=== PATIENT | female | born 1955 | race Caucasian/White ===

== ENCOUNTER 2017-01-01 06:54 | Outpatient (CLI) | payer BC ==
[2017-01-01] MEDS ORDERED: NACL ONE (09:44)
--- NOTE | 2017-01-01 13:06 | Cat Scan Report ---
CT ABDOMEN AND PELVIS WITH CONTRAST INDICATION: Diverticulitis. COMPARISON: 12/07/2016. FINDINGS: Abdomen and pelvis CT performed following oral contrast and intravenous administration of 100 cc of Omnipaque 300. LUNG BASES: Stable heart size. No effusions. Right hemidiaphragm mildly elevated. Air filled distal esophageal prominence/thickening, not excluded for gastroesophageal reflux and/or hiatal hernia, amongst others. ABDOMEN: Stable cholecystectomy clips. Liver, spleen, pancreas, adrenals, nonaneurysmal abdominal aorta, IVC and kidneys appear within normal limits bilaterally without hydronephrosis, ascites or size significant adenopathy. Opacified small bowel unremarkable. Mild to moderate colonic stool/possible constipation. Multiple descending colon and few proximal sigmoid diverticuli also again seen with interval resolution of inflammatory changes. Small fat containing umbilical hernia with a transverse neck of 1 cm. PELVIS: Uterus again surgically absent with few small pelvic phleboliths. Interval resolution of small pelvic free fluid. Urinary bladder and the rectosigmoid within normal limits. No size significant adenopathy. Few bony degenerative changes, including multilevel lower thoracic right-sided osteophytes. CONCLUSION: 1. Interval resolution of left lower quadrant acute diverticulitis and small pelvic free fluid, as described. 2. Various other incidental findings, including distal esophageal prominence, cholecystectomy, diverticulosis and hysterectomy, amongst others, as above. Thank you for the opportunity to participate in this patient's care.
== END 2017-01-01 06:55 | disposition home or self-care (01) ==
LOC: CT 06:54
PROVIDERS: ATTEND Internal Medicine Gastroenterology
DX: K57.32 Diverticulitis of large intestine without perforation or abscess without bleeding (principal); J98.6 Disorders of diaphragm; K42.9 Umbilical hernia without obstruction or gangrene; I87.8 Other specified disorders of veins; M25.78 Osteophyte, vertebrae; M47.814 Spondylosis without myelopathy or radiculopathy, thoracic region; Z90.710 Acquired absence of both cervix and uterus; Z90.49 Acquired absence of other specified parts of digestive tract
CPT/HCPCS: 74177; Q9967

== ENCOUNTER 2017-01-21 07:08 | Outpatient (CLI) | payer BC ==
[2017-01-21 08:02] LABS: Basophils % (Auto) 0.5 % (0.0-1.8); Eosinophils % (Auto) 1.9 % (0.0-4.3); Hemoglobin 13.8 gm/dl (10.1-14.3); Mean Corpuscular HGB Conc 33 % (30-34); Mean Corpuscular Hemoglobin 29 pg (28-32); Mean Corpuscular Volume 88 fl (79-97); Platelet Count 189 K/mm3 (140-440); Red Blood Count 4.77 M/mm3 (3.65-5.03); Red Cell Distribution Width 13.9 % (13.2-15.2); White Blood Count 8.7 K/mm3 (4.5-11.0)
[2017-01-21 08:26] LABS: Alanine Aminotransferase 28 units/L (7-56); Albumin 3.8 g/dL (3.9-5); Albumin/Globulin Ratio 1.2 %; Alkaline Phosphatase 90 units/L (35-129); Anion Gap 19 mmol/L; BUN/Creatinine Ratio 25.55; Blood Urea Nitrogen 23 mg/dL (7-17); Calcium 9.4 mg/dL (8.4-10.2); Carbon Dioxide 25 mmol/L (22-30); Chloride 97.4 mmol/L (98-107); Cholesterol 243 mg/dL (50-199); Glucose 102 mg/dL (65-100); HDL Cholesterol 67 mg/dL (40-59); LDL Cholesterol,Direct 149 mg/dL (50-130); Potassium 4.1 mmol/L (3.6-5.0); Sodium 137 mmol/L (137-145); Total Protein 7.1 g/dL (6.3-8.2); Triglycerides 136 mg/dL (2-149); Uric Acid 7.1 mg/dL (3.5-7.6)
[2017-01-22 16:22] LABS: Vitamin D, 25-OH, Total 34 ng/mL (30-100)
== END 2017-01-21 07:09 | disposition home or self-care (01) ==
LOC: LAB 07:08
PROVIDERS: ATTEND Internal Medicine
DX: I10 Essential (primary) hypertension (principal); E78.2 Mixed hyperlipidemia; R73.09 Other abnormal glucose; D51.0 Vitamin B12 deficiency anemia due to intrinsic factor deficiency; E55.9 Vitamin D deficiency, unspecified; Z79.899 Other long term (current) drug therapy
CPT/HCPCS: 36415; 80053; 80061; 82306; 82607; 83036; 84443; 84550; 85025

== ENCOUNTER 2017-02-04 06:45 | Day surgery (SDC) | payer BC ==
[2017-02-04] MEDS ORDERED: WATER FOR IRRIG STERILE IR ONE (07:30)
[2017-02-04] MEDS ORDERED: WATER FOR IRRIG STERILE ONE (07:30)
--- NOTE | 2017-02-04 07:33 | Anesthesia Day of Surgery ---
Anesthesia Day of Surgery - Day of Surgery Patient Examined: Yes Patient H&P Reviewed: Yes Patient is NPO: Yes
--- NOTE | 2017-02-04 07:35 | Anesthesia Consultation ---
Anesthesia Consult and Med Hx Date of service: 02/04/17 - Airway Anesthetic Teeth Evaluation: Good ROM Head & Neck: Adequate Mental/Hyoid Distance: Adequate Mallampati Class: Class II Intubation Access Assessment: Probably Good - Pulmonary Exam CTA: Yes - Cardiac Exam Cardiac Exam: RRR - Pre-Operative Health Status ASA Pre-Surgery Classification: ASA2 Proposed Anesthetic Plan: MAC - Pulmonary Hx Asthma: No COPD: No Hx Pneumonia: No - Cardiovascular System Hx Hypertension: Yes - Gastrointestinal Hx Gastroesophageal Reflux Disease: Yes - Endocrine Hx End Stage Renal Disease: No Hx Hypothyroidism: Yes
[2017-02-04] MEDS ORDERED: DIPRIVAN 10 MG/ML IV ONE ×2 (07:44→07:45)
[2017-02-04] MEDS ORDERED: NACL 0.9% 1000 ML 1,000 ML IV SCH (08:00)
--- NOTE | 2017-02-04 08:27 | Post Anesthesia Evaluation ---
- Post Anesthesia Evaluation Patient Participated: Yes Airway Patent: Yes Stable Respiratory Function: Yes Nausea/Vomiting: No Temp > 96.8F: Yes Pain Manageable: Yes Adequeate Hydration: Yes Anesthesia Complications: No Block Receding Appropriately: Not Applicable Patient on Ventilator: No
--- NOTE | 2017-02-04 08:51 | Post Operative Note ---
Pre-op diagnosis: h/o diverticulitis, screening colonoscopy Post-op diagnosis: same (diffuse diverticulosis, sigmoid polyp) Findings: diffuse diverticulosis, sigmoid polyp Procedure: colonoscopy with polypectomy (cold forcep biopsy) Anesthesia: MAC Surgeon: GRECIA COMER Estimated blood loss: minimal Pathology: list (Jar A - sigmoid polyp) Specimen disposition: to lab Condition: stable Disposition: same day
--- NOTE | 2017-02-04 08:57 | Short Stay Summary ---
Short Stay Documentation Date of service: 02/04/17 Narrative H&P: Ms Zaman is a 61 yo female who presents for screening colonoscopy. She has a h/ o acute diverticulitis several months ago which resolved. Last colonoscopy was ~8 years ago and reportedly unremarkable. Pt denies abd pain or new Gi complaints today. - History Past Medical History: hypothyroidism, other (diverticulitis) Past Surgical History: , hysterectomy Social history: no significant social history - Allergies and Medications Current Medications: Allergies No Known Allergies Allergy (Unverified 01/05/14 13:19) Home Medications Medication Instructions Recorded Confirmed Last Taken Type Omeprazole [PriLOSEC] 20 mg PO QDAY #30 capsule. 01/05/16 12/07/16 1 Day Ago Rx Promethazine [Phenergan TAB] 25 mg PO Q6HR PRN #20 tab 01/05/16 12/07/16 Unknown Rx traMADol [Ultram 50 MG tab] 50 mg PO Q6HR PRN #30 tablet 01/05/16 12/07/16 Unknown Rx Ciprofloxacin [Ciprofloxacin ORAL 500 mg PO Q12H #20 ml 12/10/16 Unknown Rx LIQ] Cyclobenzaprine [Flexeril 10 MG 10 mg PO TID PRN #21 tablet 12/10/16 Unknown Rx TAB] HYDROcodone/APAP 5-325 [[place] 1 each PO Q4H PRN #15 tablet 12/10/16 Unknown Rx 5-325 mg TAB] Levothyroxine [Synthroid] 25 mcg PO QAM #30 tablet 12/10/16 Unknown Rx Lisinopril [Zestril TAB] 10 mg PO QDAY #30 tablet 12/10/16 02/04/17 06:00 Rx Mag Hydrox/Al Hydrox/Simeth 20 ml PO QID PRN #1 bottle 12/10/16 Unknown Rx [Maalox Advanced Suspension] metroNIDAZOLE [Flagyl CAP] 500 mg PO Q8H #30 capsule 12/10/16 Unknown Rx Active Medications Sodium Chloride (Nacl 0.9% 1000 Ml) 1,000 mls @ 50 mls/hr IV DIRECT SACHA Last Admin: 02/04/17 08:01 Dose: 50 mls/hr - Physical exam General appearance: no acute distress Lungs: Clear to auscultation Heart: Regular rate, Normal S1, Normal S2 Gastrointestinal: normal Extremities: No edema Short Stay Discharge Plan Follow up with: JARRED HERNANDEZ MD [Primary Care Provider] - 7 Days
[2017-02-04 09:15] VITALS: BP 107/54
--- NOTE | 2017-02-04 09:54 | Operative Report ---
PROCEDURE: Colonoscopy. PREOPERATIVE DIAGNOSES: Screening colonoscopy, history of diverticulitis. POSTOPERATIVE DIAGNOSES: Diffuse diverticulosis, small sigmoid polyp. ANESTHESIA: Monitored anesthesia care. COMPLICATIONS: No immediate complications. ESTIMATED BLOOD LOSS: Minimal. DESCRIPTION OF PROCEDURE: After consent was obtained, the patient was placed in left lateral decubitus position. The Fujinon colonoscope was advanced with direct vision through the anus and advanced to the cecum without difficulty. The patient tolerated the procedure well. The views of the mucosa were good. The quality of prep was good. FINDINGS: There was diverticulosis throughout the colon. There was a less than 5 mm polyp in the sigmoid colon, removed and retrieved with cold biopsy forceps. IMPRESSION: 1. Moderate to severe diverticulosis throughout the colon. 2. Small sigmoid polyp. RECOMMENDATIONS: 1. Followup pathology. 2. High fiber diet daily. 3. Repeat colonoscopy for surveillance purposes in 5 years. 4. Return to GI Clinic as previously scheduled. JOB# [id number] LAM/MACK BONILLA
== END 2017-02-04 06:46 | disposition home or self-care (01) ==
LOC: GIO 06:45
PROVIDERS: ATTEND Internal Medicine Gastroenterology
DX: Z12.11 Encounter for screening for malignant neoplasm of colon (principal); K63.5 Polyp of colon; K57.30 Diverticulosis of large intestine without perforation or abscess without bleeding; I10 Essential (primary) hypertension; K21.9 Gastro-esophageal reflux disease without esophagitis; E03.9 Hypothyroidism, unspecified; E78.5 Hyperlipidemia, unspecified; E66.9 Obesity, unspecified; Z68.30 Body mass index [BMI] 30.0-30.9, adult; Z90.710 Acquired absence of both cervix and uterus; Z98.890 Other specified postprocedural states; Z79.82 Long term (current) use of aspirin; Z79.899 Other long term (current) drug therapy; Z83.79 Family history of other diseases of the digestive system; Z83.3 Family history of diabetes mellitus; Z83.49 Family history of other endocrine, nutritional and metabolic diseases; Z80.42 Family history of malignant neoplasm of prostate
CPT/HCPCS: 45380; 88305; J2704; J7030

== ENCOUNTER 2017-03-27 13:59 | Outpatient (CLI) | payer BC ==
--- NOTE | 2017-03-27 15:15 | Mammography Report ---
BILATERAL DIGITAL SCREENING MAMMOGRAM with CAD: 03/27/17 13:59:00 CLINICAL: Routine screening. COMPARISON:04/03/16 FINDINGS: The breasts are almost entirely fatty. No mass, architectural distortion or suspicious calcifications. IMPRESSION: No mammographic evidence of malignancy. BI-RADS CATEGORY: 1 - - Negative RECOMMENDATION: Routine mammographic screening in one year. COMMENT: Patient follow-up letters are generated by our [employer] application.
== END 2017-03-27 14:00 | disposition home or self-care (01) ==
LOC: MAMMO 13:59
DX: Z12.31 Encounter for screening mammogram for malignant neoplasm of breast (principal); I10 Essential (primary) hypertension; E03.9 Hypothyroidism, unspecified
CPT/HCPCS: 77067; G0202

== ENCOUNTER 2017-04-27 21:06 | Emergency (ER) | payer BC ==
--- NOTE | 2017-04-27 21:33 | Emergency Department Report ---
ED Abdominal Pain HPI - General Chief Complaint: Abdominal Pain Stated Complaint: ABD PAIN Time Seen by Provider: 04/27/17 21:21 Source: patient Mode of arrival: Ambulatory Limitations: No Limitations - History of Present Illness Initial Comments: 61-year-old lady coming in is left lower quadrant and left lower quadrant pain starting on this morning patient had a history of diverticulitis in November low- grade temperature denied any nausea or vomiting no diarrhea denied any urinary symptoms MD Complaint: abdominal pain -: Gradual Location: LUQ, LLQ Radiation: none Migration to: no migration Severity scale (0 -10): 6 Quality: sharp Improves With: nothing Associated Symptoms: denies: nausea, vomiting, chills - Related Data Previous Rx's Medication Instructions Recorded Last Taken Type Omeprazole [PriLOSEC] 20 mg PO QDAY #30 capsule. 01/05/16 1 Day Ago Rx Promethazine [Phenergan TAB] 25 mg PO Q6HR PRN #20 tab 01/05/16 Unknown Rx traMADol [Ultram 50 MG tab] 50 mg PO Q6HR PRN #30 tablet 01/05/16 Unknown Rx Ciprofloxacin [Ciprofloxacin ORAL 500 mg PO Q12H #20 ml 12/10/16 Unknown Rx LIQ] Cyclobenzaprine [Flexeril 10 MG 10 mg PO TID PRN #21 tablet 12/10/16 Unknown Rx TAB] HYDROcodone/APAP 5-325 [[place] 1 each PO Q4H PRN #15 tablet 12/10/16 Unknown Rx 5-325 mg TAB] Levothyroxine [Synthroid] 25 mcg PO QAM #30 tablet 12/10/16 Unknown Rx Lisinopril [Zestril TAB] 10 mg PO QDAY #30 tablet 12/10/16 02/04/17 06:00 Rx Mag Hydrox/Al Hydrox/Simeth 20 ml PO QID PRN #1 bottle 12/10/16 Unknown Rx [Maalox Advanced Suspension] metroNIDAZOLE [Flagyl CAP] 500 mg PO Q8H #30 capsule 12/10/16 Unknown Rx Levofloxacin [Levaquin TAB] 500 mg PO QDAY #10 tablet 04/28/17 Unknown Rx Ondansetron [Zofran Odt] 4 mg PO Q8HR PRN #14 tab.rapdis 04/28/17 Unknown Rx oxyCODONE /ACETAMINOPHEN [Percocet 1 tab PO Q6HR PRN #14 tablet 04/28/17 Unknown Rx 5/325] Allergies Allergy/AdvReac Type Severity Reaction Status Date / Time No Known Allergies Allergy Verified 04/27/17 21:07 ED Review of Systems ROS: Stated complaint: ABD PAIN Other details as noted in HPI Comment: All other systems reviewed and negative Constitutional: denies: chills, fever ENT: denies: throat pain Respiratory: denies: cough, orthopnea, shortness of breath, SOB with exertion Cardiovascular: denies: chest pain, palpitations Gastrointestinal: abdominal pain. denies: nausea, vomiting, diarrhea, constipation, hematemesis, melena, hematochezia Genitourinary: denies: dysuria Neurological: denies: headache, weakness, numbness ED Past Medical Hx - Past Medical History Previous Medical History?: Yes Hx Hypertension: Yes Hx Congestive Heart Failure: No Hx Diabetes: No Hx Asthma: No Hx COPD: No Additional medical history: hypothyroid, diverticulitis - Surgical History Hx Cholecystectomy: Yes Additional Surgical History: - Social History Smoking Status: Never Smoker Substance Use Type: None - Medications Home Medications: Home Medications Medication Instructions Recorded Confirmed Last Taken Type Omeprazole [PriLOSEC] 20 mg PO QDAY #30 capsule. 01/05/16 12/07/16 1 Day Ago Rx Promethazine [Phenergan TAB] 25 mg PO Q6HR PRN #20 tab 01/05/16 12/07/16 Unknown Rx traMADol [Ultram 50 MG tab] 50 mg PO Q6HR PRN #30 tablet 01/05/16 12/07/16 Unknown Rx Ciprofloxacin [Ciprofloxacin ORAL 500 mg PO Q12H #20 ml 12/10/16 Unknown Rx LIQ] Cyclobenzaprine [Flexeril 10 MG 10 mg PO TID PRN #21 tablet 12/10/16 Unknown Rx TAB] HYDROcodone/APAP 5-325 [[place] 1 each PO Q4H PRN #15 tablet 12/10/16 Unknown Rx 5-325 mg TAB] Levothyroxine [Synthroid] 25 mcg PO QAM #30 tablet 12/10/16 Unknown Rx Lisinopril [Zestril TAB] 10 mg PO QDAY #30 tablet 12/10/16 02/04/17 06:00 Rx Mag Hydrox/Al Hydrox/Simeth 20 ml PO QID PRN #1 bottle 12/10/16 Unknown Rx [Maalox Advanced Suspension] metroNIDAZOLE [Flagyl CAP] 500 mg PO Q8H #30 capsule 12/10/16 Unknown Rx Levofloxacin [Levaquin TAB] 500 mg PO QDAY #10 tablet 04/28/17 Unknown Rx Ondansetron [Zofran Odt] 4 mg PO Q8HR PRN #14 tab.rapdis 04/28/17 Unknown Rx oxyCODONE /ACETAMINOPHEN [Percocet 1 tab PO Q6HR PRN #14 tablet 04/28/17 Unknown Rx 5/325] ED Physical Exam - General Limitations: No Limitations General appearance: alert, in no apparent distress - Neck Neck exam: Present: normal inspection - Respiratory Respiratory exam: Present: normal lung sounds bilaterally. Absent: wheezes, rales, rhonchi - Cardiovascular Cardiovascular Exam: Present: regular rate, normal rhythm, normal heart sounds - GI/Abdominal GI/Abdominal exam: Present: soft, tenderness (left upper quadrant and left lower quadrant). Absent: distended, guarding, rebound, rigid, normal bowel sounds, hyperactive bowel sounds, hypoactive bowel sounds, mass, bruit, pulsatile mass, hernia - Neurological Exam Neurological exam: Present: alert, oriented X3, CN II-XII intact - Skin Skin exam: Present: warm ED Course Vital Signs 04/27/17 04/27/17 04/27/17 21:07 21:39 21:45 Temperature 99.2 F Pulse Rate 106 H 94 H 89 Respiratory 18 14 14 Rate Blood Pressure 171/109 137/88 O2 Sat by Pulse 98 98 98 Oximetry 04/27/17 04/27/17 04/27/17 22:00 22:16 22:30 Temperature Pulse Rate 85 86 86 Respiratory 27 H 20 22 Rate Blood Pressure 142/75 147/87 144/75 O2 Sat by Pulse 97 97 97 Oximetry 04/27/17 04/27/17 04/28/17 22:44 22:45 00:50 Temperature Pulse Rate 94 H 92 H 89 Respiratory 19 25 H 13 Rate Blood Pressure 144/75 144/76 145/80 O2 Sat by Pulse 95 95 98 Oximetry 04/28/17 04/28/17 01:00 01:15 Temperature Pulse Rate 78 79 Respiratory 24 24 Rate Blood Pressure 135/71 143/80 O2 Sat by Pulse 97 98 Oximetry - Reevaluation(s) Reevaluation #1: 04/28/17 01:34 Patient stated that she is feeling much better, denied nausea or vomiting. Patient wanted to go home and take the by mouth antibiotic and follow-up with her GI tomorrow. ED Medical Decision Making - Lab Data Result diagrams: 04/27/17 21:21 04/27/17 21:21 Critical care attestation.: If time is entered above; I have spent that time in minutes in the direct care of this critically ill patient, excluding procedure time. ED Disposition Clinical Impression: Diverticulitis large intestine Disposition: DC-01 TO HOME OR SELFCARE Is pt being admited?: No Condition: Stable Instructions: Abdominal Pain (ED), Diverticulitis (ED)
[2017-04-27 21:42] LABS: Basophils % (Auto) 0.4 % (0.0-1.8); Eosinophils % (Auto) 0.7 % (0.0-4.3); Hematocrit 47.7 % (30.3-42.9); Hemoglobin 15.8 gm/dl (10.1-14.3); Mean Corpuscular HGB Conc 33 % (30-34); Mean Corpuscular Hemoglobin 29 pg (28-32); Mean Corpuscular Volume 87 fl (79-97); Platelet Count 215 K/mm3 (140-440); Red Blood Count 5.46 M/mm3 (3.65-5.03); Red Cell Distribution Width 12.9 % (13.2-15.2); White Blood Count 13.3 K/mm3 (4.5-11.0)
[2017-04-27 21:53] LABS: Bilirubin,Urine NEG (Negative); Blood,Urine MOD (Negative); Ketones,Urine NEG (Negative); Leukocyte Esterase,Urine NEG (Negative); Nitrite,Urine NEG (Negative); Urobilinogen,Urine < 2.0 mg/dL (<2.0); WBC,Urine < 1.0 /HPF (0.0-6.0)
[2017-04-27 21:54] LABS: Albumin 4.1 g/dL (3.9-5); Albumin/Globulin Ratio 1.1 %; Bilirubin,Total 0.3 mg/dL (0.1-1.2); Calcium 9.3 mg/dL (8.4-10.2); Chloride 97.4 mmol/L (98-107); Potassium 3.7 mmol/L (3.6-5.0); Total Protein 7.8 g/dL (6.3-8.2)
[2017-04-27] MEDS ORDERED: ZOSYN/NS 4.5GM/100ML 4.5 GM/100 ML VIAL IV ONE (22:43)
[2017-04-27] MEDS ORDERED: NACL ONE (23:36)
--- NOTE | 2017-04-28 00:25 | Cat Scan Report ---
FINAL REPORT EXAM: CT ABDOMEN PELVIS W CON HISTORY: abdominal pain left side COMPARISON: CT of the abdomen pelvis from December 2016. TECHNIQUE: Contiguous axial images were obtained. Additional sagittal and coronal reformatted images were obtained. Administration of IV contrast given per institution protocol. Images submitted for interpretation. 100 cc Omnipaque 300. FINDINGS: Mild atelectasis at the lung bases. Mild diffuse fatty infiltration of the liver. Gallbladder surgically absent. No biliary dilatation. Mild diffuse fatty infiltration of the liver. Spleen and pancreas are grossly unremarkable. Mild nodular thickening of adrenal glands. No solid renal lesion. No hydronephrosis or perinephric fat stranding. Aorta and IVC are normal in caliber. Urinary bladder is unremarkable. Uterus is surgically absent. No free fluid lymphadenopathy in the pelvic cavity. The appendix is normal in caliber measuring 4 millimeters. No bowel obstruction. Focal inflammation of the distal descending colon. Inflamed diverticular outpouchings that region. Mild adjacent fat stranding and trace fluid. No free air or abscess. Bony pelvis and lumbar spine are grossly intact. IMPRESSION: Acute diverticulitis of the distal descending colon. No free air or abscess.
[2017-04-28 01:45] VITALS: BP 156/78
== END 2017-04-28 01:45 | disposition home or self-care (01) ==
LOC: ED 21:06
DX: K57.32 Diverticulitis of large intestine without perforation or abscess without bleeding (principal); I10 Essential (primary) hypertension; E03.9 Hypothyroidism, unspecified
CPT/HCPCS: 36415; 74177; 80053; 81001; 83690; 85025; 87040; 96365; 99284; J2543; Q9967

== ENCOUNTER 2017-05-18 07:14 | Emergency (ER) | payer BC ==
[2017-05-18 08:29] LABS: Basophils % (Auto) 0.4 % (0.0-1.8); Eosinophils % (Auto) 1.5 % (0.0-4.3); Hematocrit 44.6 % (30.3-42.9); Mean Corpuscular HGB Conc 34 % (30-34); Mean Corpuscular Hemoglobin 29 pg (28-32); Mean Corpuscular Volume 87 fl (79-97); Platelet Count 190 K/mm3 (140-440); Red Blood Count 5.14 M/mm3 (3.65-5.03); Red Cell Distribution Width 13.3 % (13.2-15.2); White Blood Count 8.4 K/mm3 (4.5-11.0)
[2017-05-18 08:45] LABS: Alanine Aminotransferase 24 units/L (7-56); Albumin 3.8 g/dL (3.9-5); Albumin/Globulin Ratio 1.1 %; Alkaline Phosphatase 82 units/L (35-129); Anion Gap 17 mmol/L; BUN/Creatinine Ratio 15.71; Blood Urea Nitrogen 11 mg/dL (7-17); Calcium 9.5 mg/dL (8.4-10.2); Carbon Dioxide 24 mmol/L (22-30); Chloride 102.4 mmol/L (98-107); Glucose 114 mg/dL (65-100); Lipase 40 units/L (13-60); Potassium 3.7 mmol/L (3.6-5.0); Sodium 140 mmol/L (137-145); Total Protein 7.2 g/dL (6.3-8.2)
[2017-05-18 08:55] LABS: Bilirubin,Urine NEG (Negative); Blood,Urine MOD (Negative); Ketones,Urine NEG (Negative); Leukocyte Esterase,Urine NEG (Negative); Nitrite,Urine NEG (Negative); Protein,Urine <15 mg/dL mg/dL (Negative); Urobilinogen,Urine < 2.0 mg/dL (<2.0); WBC,Urine < 1.0 /HPF (0.0-6.0)
--- NOTE | 2017-05-18 10:50 | Emergency Department Report ---
ED Abdominal Pain HPI - General Chief Complaint: Abdominal Pain Stated Complaint: STOMACH PAIN Time Seen by Provider: 05/18/17 09:30 Source: patient Mode of arrival: Ambulatory Limitations: No Limitations - History of Present Illness Initial Comments: 61-year-old female with known history of diverticulitis here with complaint of left lower quadrant abdominal pain. Patient was recently admitted to the hospital for 2 days with a diverticulitis flare. She has no fevers chills nausea vomiting currently. She actually feels relatively well. Her pain is up in her left upper quadrant more than anywhere else. MD Complaint: abdominal pain -: Gradual, days(s) Location: LUQ, LLQ Radiation: none Migration to: no migration Severity: mild Quality: cramping Consistency: constant Improves With: nothing Worsens With: nothing Associated Symptoms: denies: nausea, vomiting, diarrhea, chills, constipation - Related Data Previous Rx's Medication Instructions Recorded Last Taken Type Lisinopril [Zestril TAB] 10 mg PO QDAY #30 tablet 12/10/16 04/28/17 Rx Ondansetron [Zofran Odt] 4 mg PO Q8HR PRN #14 tab.rapdis 04/28/17 04/28/17 Rx oxyCODONE /ACETAMINOPHEN [Percocet 1 tab PO Q6HR PRN #14 tablet 04/28/17 Rx 5/325] Levofloxacin [Levaquin TAB] 500 mg PO QDAY #5 tablet 05/01/17 Unknown Rx metroNIDAZOLE [Flagyl] 500 mg PO Q8HR #21 tablet 05/01/17 Unknown Rx oxyCODONE /ACETAMINOPHEN [Percocet 1 tab PO Q6HR PRN #12 tablet 05/01/17 Unknown Rx 5/325] Ibuprofen [Motrin] 600 mg PO Q8H PRN #30 tablet 05/18/17 Unknown Rx Allergies Allergy/AdvReac Type Severity Reaction Status Date / Time No Known Allergies Allergy Verified 04/27/17 21:07 ED Review of Systems ROS: Stated complaint: STOMACH PAIN Other details as noted in HPI Comment: All other systems reviewed and negative Constitutional: denies: chills, fever Eyes: denies: eye pain ENT: denies: ear pain, throat pain Respiratory: denies: cough, shortness of breath, wheezing Cardiovascular: denies: chest pain, palpitations Endocrine: no symptoms reported Gastrointestinal: abdominal pain. denies: nausea, diarrhea Genitourinary: denies: urgency, dysuria, discharge Musculoskeletal: denies: back pain, joint swelling, arthralgia Skin: denies: rash, lesions Neurological: denies: headache, weakness, paresthesias Psychiatric: denies: anxiety, depression Hematological/Lymphatic: denies: easy bleeding, easy bruising ED Past Medical Hx - Past Medical History Hx Hypertension: Yes Hx Congestive Heart Failure: No Hx Diabetes: No Hx Asthma: No Hx COPD: No Hx HIV: No Additional medical history: hypothyroid, diverticulitis - Surgical History Hx Cholecystectomy: Yes Additional Surgical History: - Family History Family history: no significant - Social History Smoking Status: Never Smoker Substance Use Type: None - Medications Home Medications: Home Medications Medication Instructions Recorded Confirmed Last Taken Type Lisinopril [Zestril TAB] 10 mg PO QDAY #30 tablet 12/10/16 04/29/17 04/28/17 Rx Ondansetron [Zofran Odt] 4 mg PO Q8HR PRN #14 tab.rapdis 04/28/17 04/29/1704/28 Rx oxyCODONE /ACETAMINOPHEN [Percocet 1 tab PO Q6HR PRN #14 tablet 04/28/1704/28/17 Rx 5/325] Levofloxacin [Levaquin TAB] 500 mg PO QDAY #5 tablet 05/01/17 Unknown Rx metroNIDAZOLE [Flagyl] 500 mg PO Q8HR #21 tablet 05/01/17 Unknown Rx oxyCODONE /ACETAMINOPHEN [Percocet 1 tab PO Q6HR PRN #12 tablet 05/01/17 Unknown Rx 5/325] Ibuprofen [Motrin] 600 mg PO Q8H PRN #30 tablet 05/18/17 Unknown Rx ED Physical Exam - General Limitations: No Limitations General appearance: alert, in no apparent distress - Head Head exam: Present: atraumatic, normocephalic - Eye Eye exam: Present: normal appearance. Absent: scleral icterus, conjunctival injection - ENT ENT exam: Present: mucous membranes moist - Neck Neck exam: Present: normal inspection - Respiratory Respiratory exam: Present: normal lung sounds bilaterally. Absent: respiratory distress - Cardiovascular Cardiovascular Exam: Present: regular rate, normal rhythm. Absent: systolic murmur, diastolic murmur, rubs, gallop - GI/Abdominal GI/Abdominal exam: Present: soft, normal bowel sounds. Absent: distended, tenderness, guarding, rebound - Extremities Exam Extremities exam: Present: normal inspection - Back Exam Back exam: Present: normal inspection - Neurological Exam Neurological exam: Present: alert, oriented X3 - Psychiatric Psychiatric exam: Present: normal affect, normal mood - Skin Skin exam: Present: warm, dry, intact, normal color. Absent: rash ED Course Vital Signs 05/18/17 07:44 Temperature 97.7 F Pulse Rate 80 Respiratory 16 Rate Blood Pressure 153/90 O2 Sat by Pulse 96 Oximetry ED Medical Decision Making - Lab Data Result diagrams: 05/18/17 08:07 05/18/17 08:07 Laboratory Results - last 24 hr 05/18/17 05/18/17 05/18/17 08:07 08:07 08:35 WBC 8.4 RBC 5.14 H Hgb 15.0 H Hct 44.6 H MCV 87 MCH 29 MCHC 34 RDW 13.3 Plt Count 190 Lymph % (Auto) 26.7 [place] % (Auto) 7.6 H Eos % (Auto) 1.5 Baso % (Auto) 0.4 Lymph # 2.2 [place] # 0.6 Eos # 0.1 Baso # 0.0 Seg Neutrophils % 63.8 Seg Neutrophils # 5.4 Sodium 140 Potassium 3.7 Chloride 102.4 Carbon Dioxide 24 Anion Gap 17 BUN 11 Creatinine 0.7 Estimated GFR > 60 BUN/Creatinine Ratio 15.71 Glucose 114 H Calcium 9.5 Total Bilirubin 0.40 AST 18 ALT 24 Alkaline Phosphatase 82 Total Protein 7.2 Albumin 3.8 L Albumin/Globulin Ratio 1.1 Lipase 40 Urine Color Red Urine Turbidity Clear Urine pH 6.0 Ur Specific [place] 1.002 L Urine Protein <15 mg/dl Urine Glucose (UA) Neg Urine Ketones Neg Urine Blood Mod Urine Nitrite Neg Urine Bilirubin Neg Urine Urobilinogen < 2.0 Ur Leukocyte Esterase Neg Urine WBC (Auto) < 1.0 Urine RBC (Auto) 3.0 U Epithel Cells (Auto) < 1.0 - Medical Decision Making 61-year-old female here with known history of diverticulitis here with complaint of left upper and lower quadrant pain. No fevers chills nausea vomiting. She appears otherwise well. She is nontender on clinical exam. Her white count is normal. 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 Plan discussed this with the patient and likely have her follow- up as an outpatient. Portions of this chart were dictated with dictation software. There may be dictation errors contained within this note. Critical care attestation.: If time is entered above; I have spent that time in minutes in the direct care of this critically ill patient, excluding procedure time. ED Disposition Clinical Impression: Abdominal pain Disposition: DC-01 TO HOME OR SELFCARE Is pt being admited?: No Condition: Stable Instructions: Abdominal Pain (ED) Prescriptions: Ibuprofen [Motrin] 600 mg PO Q8H PRN #30 tablet PRN Reason: Pain Referrals: PRIMARY CARE, [Primary Care Provider] - 3-5 Days
[2017-05-18 11:21] VITALS: BP 145/72
== END 2017-05-18 11:10 | disposition home or self-care (01) ==
LOC: ED 07:14
DX: R10.32 Left lower quadrant pain (principal); R10.12 Left upper quadrant pain; E03.9 Hypothyroidism, unspecified
CPT/HCPCS: 36415; 80053; 81001; 82962; 83690; 85025; 99283

== ENCOUNTER 2017-10-19 07:19 | Emergency (ER) | payer BC ==
[2017-10-19 08:59] LABS: Basophils % (Auto) 0.7 % (0.0-1.8); Eosinophils # (Auto) 0.1 K/mm3 (0.0-0.4); Eosinophils % (Auto) 1.4 % (0.0-4.3); Hematocrit 44.9 % (30.3-42.9); Hemoglobin 14.9 gm/dl (10.1-14.3); Lymphocytes # (Auto) 2.5 K/mm3 (1.2-5.4); Mean Corpuscular HGB Conc 33 % (30-34); Mean Corpuscular Hemoglobin 29 pg (28-32); Mean Corpuscular Volume 88 fl (79-97); Monocytes # (Auto) 0.5 K/mm3 (0.0-0.8); Monocytes % (Auto) 6.7 % (0.0-7.3); Platelet Count 203 K/mm3 (140-440); Red Blood Count 5.13 M/mm3 (3.65-5.03); Red Cell Distribution Width 13.6 % (13.2-15.2)
[2017-10-19 09:16] LABS: Alanine Aminotransferase 29 units/L (7-56); Albumin 4.1 g/dL (3.9-5); BUN/Creatinine Ratio 18; Blood Urea Nitrogen 16 mg/dL (7-17); Calcium 9.6 mg/dL (8.4-10.2); Hemolysis Index 9
[2017-10-19 09:33] LABS: Bilirubin,Urine NEG (Negative); Blood,Urine MOD (Negative); Color,Urine Straw (Yellow); Urobilinogen,Urine < 2.0 mg/dL (<2.0)
[2017-10-19 09:43] VITALS: BP 164/72
--- NOTE | 2017-10-19 10:19 | Emergency Department Report ---
ED General Adult HPI - General Chief complaint: Abdominal Pain Stated complaint: ABD PAIN Time Seen by Provider: 10/19/17 10:05 Source: patient, RN notes reviewed, old records reviewed Mode of arrival: Ambulatory Limitations: No Limitations - History of Present Illness Initial comments: Primary care Dr.: Dr. Jarred Lewis Past medical history: Hypertension, hypothyroidism, diverticulitis This is a 61-year-old female who was previously unknown to this provider. She presents to the ER with a complaint of nontraumatic left sided upper abdominal pain. This discomfort has been present for the past few days. It is described as achy in nature. It does not radiate anywhere. Has no exacerbating or relieving factors. Patient reports no urinary symptoms, no nausea, vomiting or diarrhea, no left lower quadrant abdominal pain, no chest pain, no shortness of breath, no cough, no recent trips, no leg pain, no leg swelling, no DVT or pulmonary embolus risk factors. She reports that she came to the ER "to get checked out" because past episodes of diverticulitis have been complicated. -: Gradual Location: abdomen Radiation: non-radiation Severity scale (0 -10): 0 Quality: aching Consistency: intermittent Improves with: none Worsens with: none Associated Symptoms: denies other symptoms. denies: confusion, chest pain, cough, diaphoresis, fever/chills, headaches, loss of appetite, malaise, nausea/ vomiting, rash, seizure, shortness of breath, syncope, weakness - Related Data Previous Rx's Medication Instructions Recorded Last Taken Type Lisinopril [Zestril TAB] 10 mg PO QDAY #30 tablet 12/10/16 04/28/17 Rx Ondansetron [Zofran Odt] 4 mg PO Q8HR PRN #14 tab.rapdis 04/28/17 04/28/17 Rx oxyCODONE /ACETAMINOPHEN [Percocet 1 tab PO Q6HR PRN #14 tablet 04/28/17 Rx 5/325] Levofloxacin [Levaquin TAB] 500 mg PO QDAY #5 tablet 05/01/17 Unknown Rx metroNIDAZOLE [Flagyl] 500 mg PO Q8HR #21 tablet 05/01/17 Unknown Rx oxyCODONE /ACETAMINOPHEN [Percocet 1 tab PO Q6HR PRN #12 tablet 05/01/17 Unknown Rx 5/325] Ibuprofen [Motrin] 600 mg PO Q8H PRN #30 tablet 05/18/17 Unknown Rx Allergies Allergy/AdvReac Type Severity Reaction Status Date / Time No Known Allergies Allergy Verified 10/19/17 08:33 ED Review of Systems ROS: Stated complaint: ABD PAIN Other details as noted in HPI Comment: All other systems reviewed and negative (see history of present illness ) ED Past Medical Hx - Past Medical History Previous Medical History?: Yes Hx Hypertension: Yes Hx Congestive Heart Failure: No Hx Diabetes: No Hx Asthma: No Hx COPD: No Hx HIV: No Additional medical history: hypothyroid, diverticulitis - Surgical History Past Surgical History?: Yes Hx Cholecystectomy: Yes Additional Surgical History: - Social History Smoking Status: Never Smoker Substance Use Type: None - Medications Home Medications: Home Medications Medication Instructions Recorded Confirmed Last Taken Type Lisinopril [Zestril TAB] 10 mg PO QDAY #30 tablet 12/10/16 04/29/17 04/28/17 Rx Ondansetron [Zofran Odt] 4 mg PO Q8HR PRN #14 tab.rapdis 04/28/17 04/29/1704/28 Rx oxyCODONE /ACETAMINOPHEN [Percocet 1 tab PO Q6HR PRN #14 tablet 04/28/1704/28/17 Rx 5/325] Levofloxacin [Levaquin TAB] 500 mg PO QDAY #5 tablet 05/01/17 Unknown Rx metroNIDAZOLE [Flagyl] 500 mg PO Q8HR #21 tablet 05/01/17 Unknown Rx oxyCODONE /ACETAMINOPHEN [Percocet 1 tab PO Q6HR PRN #12 tablet 05/01/17 Unknown Rx 5/325] Ibuprofen [Motrin] 600 mg PO Q8H PRN #30 tablet 05/18/17 Unknown Rx ED Physical Exam - General Limitations: No Limitations General appearance: alert, in no apparent distress - Head Head exam: Present: atraumatic, normocephalic - Eye Eye exam: Present: normal appearance, EOMI. Absent: nystagmus - ENT ENT exam: Present: normal exam, normal orophraynx, mucous membranes moist, normal external ear exam - Neck Neck exam: Present: normal inspection, full ROM - Respiratory Respiratory exam: Present: normal lung sounds bilaterally. Absent: respiratory distress - Cardiovascular Cardiovascular Exam: Present: regular rate, normal rhythm, normal heart sounds. Absent: systolic murmur, diastolic murmur, rubs, gallop - GI/Abdominal GI/Abdominal exam: Present: soft, normal bowel sounds. Absent: distended, tenderness, guarding, rebound, rigid, pulsatile mass - Extremities Exam Extremities exam: Present: normal inspection, full ROM, normal capillary refill. Absent: pedal edema, joint swelling, calf tenderness - Back Exam Back exam: Present: normal inspection, full ROM. Absent: tenderness, CVA tenderness (R), paraspinal tenderness, vertebral tenderness - Neurological Exam Neurological exam: Present: alert, oriented X3, CN II-XII intact, normal gait, other (Extraocular movements intact. Tongue midline. No facial droop. Facial sensation intact to light touch in the V1, V2, V3 distribution bilaterally. 5 and 5 strength in 4 extremities.. Sensation is intact to light touch in 4 extremities.). Absent: motor sensory deficit - Psychiatric Psychiatric exam: Present: normal affect, normal mood - Skin Skin exam: Present: warm, dry, intact, normal color. Absent: rash ED Course Vital Signs 10/19/17 10/19/17 10/19/17 08:30 09:27 09:35 Temperature 98.5 F 98.2 F Pulse Rate 82 76 Respiratory 16 13 Rate Blood Pressure 172/83 Blood Pressure 164/72 [Left] O2 Sat by Pulse 99 99 98 Oximetry ED Medical Decision Making - Lab Data Result diagrams: 10/19/17 08:47 10/19/17 08:47 Vital Signs 10/19/17 10/19/17 10/19/17 08:30 09:27 09:35 Temperature 98.5 F 98.2 F Pulse Rate 82 76 Respiratory 16 13 Rate Blood Pressure 172/83 Blood Pressure 164/72 [Left] O2 Sat by Pulse 99 99 98 Oximetry Lab Results 10/19/17 10/19/17 10/19/17 Range/Units 08:47 08:47 09:15 WBC 7.7 (4.5-11.0) K/mm3 RBC 5.13 H (3.65-5.03) M/mm3 Hgb 14.9 H (10.1-14.3) gm/dl Hct 44.9 H (30.3-42.9) % MCV 88 (79-97) fl MCH 29 (28-32) pg MCHC 33 (30-34) % RDW 13.6 (13.2-15.2) % Plt Count 203 (140-440) K/mm3 Lymph % (Auto) 32.0 (13.4-35.0) % Mathews % (Auto) 6.7 (0.0-7.3) % Eos % (Auto) 1.4 (0.0-4.3) % Baso % (Auto) 0.7 (0.0-1.8) % Lymph # 2.5 (1.2-5.4) K/mm3 Mathews # 0.5 (0.0-0.8) K/mm3 Eos # 0.1 (0.0-0.4) K/mm3 Baso # 0.0 (0.0-0.1) K/mm3 Seg Neutrophils % 59.2 (40.0-70.0) % Seg Neutrophils # 4.6 (1.8-7.7) K/mm3 Sodium 138 (137-145) mmol/L Potassium 4.2 (3.6-5.0) mmol/L Chloride 97.4 L (98-107) mmol/L Carbon Dioxide 28 (22-30) mmol/L Anion Gap 17 mmol/L BUN 16 (7-17) mg/dL Creatinine 0.9 (0.7-1.2) mg/dL Estimated GFR > 60 ml/min BUN/Creatinine Ratio 18 % Glucose 109 H (65-100) mg/dL Calcium 9.6 (8.4-10.2) mg/dL Total Bilirubin 0.40 (0.1-1.2) mg/dL AST 18 (5-40) units/L ALT 29 (7-56) units/L Alkaline Phosphatase 101 (35-129) units/L Total Protein 7.1 (6.3-8.2) g/dL Albumin 4.1 (3.9-5) g/dL Albumin/Globulin Ratio 1.4 % Urine Color Straw (Yellow) Urine Turbidity Clear (Clear) Urine pH 7.0 (5.0-7.0) Ur Specific Walker 1.004 (1.003-1.030) Urine Protein 30 mg/dl (Negative) mg/dL Urine Glucose (UA) Neg (Negative) mg/dL Urine Ketones Neg (Negative) mg/dL Urine Blood Mod (Negative) Urine Nitrite Neg (Negative) Urine Bilirubin Neg (Negative) Urine Urobilinogen < 2.0 (<2.0) mg/dL Ur Leukocyte Esterase Neg (Negative) Urine WBC (Auto) 1.0 (0.0-6.0) /HPF Urine RBC (Auto) 3.0 (0.0-6.0) /HPF U Epithel Cells (Auto) < 1.0 (0-13.0) /HPF - Radiology Data Radiology results: image reviewed interpreted by me: X-ray of the chest, interpreted by me: No acute disease Differential diagnosis, including not limited to: Constipation, urinary tract infection, pneumonia, muscle wall sprain/strain Assessment and plan: 61-year-old female with nontraumatic left flank/left upper quadrant discomfort. She has no tenderness she is afebrile, and appears quite comfortable. There are no pulmonary embolus or DVT risk factors, and the patient is low risk by well's criteria. Laboratory studies are unremarkable. X -ray of the chest was unremarkable. Patient does not require pain medication at this time. Based on her current history and physical exam do not believe the patient requires advanced imaging at this time, at this point in time there does not appear to be any evidence of emergent condition at this time, the patient is suitable to follow up with her primary care doctor. She is instructed to return to the ER right away if /when symptoms change. Critical care attestation.: If time is entered above; I have spent that time in minutes in the direct care of this critically ill patient, excluding procedure time. ED Disposition Clinical Impression: Left flank pain Disposition: DC-01 TO HOME OR SELFCARE Is pt being admited?: No Does the pt Need Aspirin: No Condition: Stable Instructions: Abdominal Pain (ED) Additional Instructions: Continue current outpatient medications. 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 Return to the ER right away with new pain, worsened pain, migration of pain, fevers, chills, intractable nausea or vomiting, confusion, inability to tolerate liquid feedings. Referrals: PRIMARY CARE, [Primary Care Provider] - 3-5 Days JARRED HERNANDEZ MD [Staff Physician] - 3-5 Days GRECIA COMER MD [Staff Physician] - 3-5 Days
--- NOTE | 2017-10-19 11:15 | XRay Report ---
ROUTINE CHEST, TWO VIEWS: HISTORY: Left-sided chest pain. The trachea, heart, mediastinal contour, lung huggins and bony thorax are unremarkable. IMPRESSION: Unremarkable chest x-ray.
== END 2017-10-19 11:34 | disposition home or self-care (01) ==
LOC: ED 07:19
DX: R10.12 Left upper quadrant pain (principal); I10 Essential (primary) hypertension
CPT/HCPCS: 36415; 71046; 80053; 81001; 85025; 99283

== ENCOUNTER 2018-05-06 14:13 | Outpatient (CLI) | payer BC ==
--- NOTE | 2018-05-07 13:25 | Mammography Report ---
BILATERAL DIGITAL SCREENING MAMMOGRAM with CAD: 05/06/18 14:13:00 CLINICAL: Routine screening. COMPARISON:03/27/17 FINDINGS: The breasts are almost entirely fatty. No mass, architectural distortion or suspicious calcifications. IMPRESSION: No mammographic evidence of malignancy. BI-RADS CATEGORY: 1 - - Negative RECOMMENDATION: Routine mammographic screening in one year. COMMENT: Patient follow-up letters are generated by our [employer] application.
== END 2018-05-06 14:14 | disposition home or self-care (01) ==
LOC: MAMMO 14:13
DX: Z12.31 Encounter for screening mammogram for malignant neoplasm of breast (principal); I10 Essential (primary) hypertension; E66.9 Obesity, unspecified; K21.9 Gastro-esophageal reflux disease without esophagitis; E03.9 Hypothyroidism, unspecified; Z90.49 Acquired absence of other specified parts of digestive tract
CPT/HCPCS: 77067

== ENCOUNTER 2018-06-10 07:34 | Outpatient (CLI) | payer BC ==
--- NOTE | 2018-06-15 14:41 | Vascular Lab Report ---
LOWER EXTREMITY VENOUS DUPLEX: REASON FOR EXAM: Pain and swelling of the lower extremities. COMMENTS ON THE RIGHT: No evidence of deep venous thrombosis was noted during the study. The greater saphenous vein is patent from groin to ankle. Reflux is noted at 6.3 seconds in the mid thigh. Maximum diameter of the greater saphenous vein is 61 mm in the mid thigh and 68 mm at the saphenofemoral junction. The short saphenous vein has a maximum diameter of 5.3 mm and maximum reflux of 4.18 seconds. COMMENTS ON THE LEFT: No evidence of deep venous thrombosis was noted during the study. The greater saphenous and lesser saphenous veins are patent without evidence of thrombosis. No reflux is noted either the greater saphenous or short saphenous veins. IMPRESSION: Evidence of significant superficial venous reflux involving the greater saphenous vein of the right lower extremity. Evidence of significant venous reflux at the right lesser saphenous vein. No evidence of significant venous reflux at the greater and lesser saphenous veins of the left lower extremity.
== END 2018-06-10 07:35 | disposition home or self-care (01) ==
LOC: VAS 07:34
PROVIDERS: ATTEND Surgery Vascular Surgery
DX: I83.813 Varicose veins of bilateral lower extremities with pain (principal); I10 Essential (primary) hypertension; E66.9 Obesity, unspecified; K21.9 Gastro-esophageal reflux disease without esophagitis
CPT/HCPCS: 93970

== ENCOUNTER 2018-10-14 07:24 | Outpatient (CLI) | payer BC ==
[2018-10-14 09:06] LABS: Chol/HDL Ratio 3.05 %
[2018-10-14 11:13] LABS: Hepatitis B Surface Antigen Non-Reactive (Negative); Hepatitis C Virus Antibody Non-Reactive (NonReactive)
== END 2018-10-14 07:25 | disposition home or self-care (01) ==
LOC: LAB 07:24
PROVIDERS: ATTEND Internal Medicine
DX: E11.9 Type 2 diabetes mellitus without complications (principal); I10 Essential (primary) hypertension; E03.9 Hypothyroidism, unspecified; E78.5 Hyperlipidemia, unspecified; K21.9 Gastro-esophageal reflux disease without esophagitis; E66.9 Obesity, unspecified; Z90.710 Acquired absence of both cervix and uterus; Z90.49 Acquired absence of other specified parts of digestive tract
CPT/HCPCS: 36415; 80061; 80074; 83036; 84443; 86592

== ENCOUNTER 2018-11-10 06:55 | Outpatient (CLI) | payer BC ==
[2018-11-10 07:56] LABS: Blood Urea Nitrogen 12 mg/dL (7-17)
--- NOTE | 2018-11-10 10:59 | Cat Scan Report ---
CT ABDOMEN AND PELVIS WITH CONTRAST INDICATION: Intra-abdominal and pelvic swelling, hypogastric mass and lump, unspecified. COMPARISON: 04/27/2017 CT. FINDINGS: Abdomen and pelvis CT performed following oral contrast and intravenous administration of 100 cc of Omnipaque 300. LUNG BASES: Mild nonspecific air-filled distal esophageal prominence/thickening, not excluded for hiatal hernia and/or gastroesophageal reflux, amongst others. ABDOMEN: Stable postcholecystectomy appearance with otherwise unremarkable liver, spleen, pancreas, adrenals, IVC and kidneys. Nonaneurysmal abdominal aorta with mild tortuosity towards the left. No ascites or size significant adenopathy. Opacified GI tract nonobstructive. Normal appendix. Mild to moderate stool throughout colon/possible constipation, partly admixed with contrast proximally. Multiple descending colon diverticuli again noted with interval resolution of distal descending colon diverticulitis changes. An infraumbilical near midline ventral hernia containing slightly stranded fat is larger at approximately 3 cm, axial image 60, series 4, previously approximately 1.8 cm. Transverse hernia defect approximately 1.3 cm, axial image 59. PELVIS: Uterus again surgically absent with few small pelvic phleboliths. Rectal stool. Unremarkable urinary bladder. No free fluid or significant adenopathy. Slight lumbar levocurvature, possibly positional versus scoliosis. Multilevel spinal degenerative spurring. Osteopenia not excluded. CONCLUSION: 1. Infraumbilical near midline fat-containing hernia noted, as described above. 2. Various other incidental findings, including possible constipation, diverticulosis, cholecystectomy and hysterectomy, amongst others in this patient with interval resolution of acute descending colon diverticulitis since April 2017, as above. Thank you for the opportunity to participate in this patient's care.
== END 2018-11-10 06:56 | disposition home or self-care (01) ==
LOC: CT 06:55
PROVIDERS: ATTEND Internal Medicine
DX: K42.9 Umbilical hernia without obstruction or gangrene (principal); K57.30 Diverticulosis of large intestine without perforation or abscess without bleeding; K57.32 Diverticulitis of large intestine without perforation or abscess without bleeding; I10 Essential (primary) hypertension; E66.9 Obesity, unspecified; E03.9 Hypothyroidism, unspecified; K21.9 Gastro-esophageal reflux disease without esophagitis; Z90.710 Acquired absence of both cervix and uterus; Z90.49 Acquired absence of other specified parts of digestive tract
CPT/HCPCS: 36415; 74177; 82565; 84520; Q9967

== ENCOUNTER 2018-11-27 11:52 | Emergency (ER) | payer BC ==
[2018-11-27 11:58] VITALS: BP 151/88
--- NOTE | 2018-11-27 11:59 | Emergency Department Report ---
Chief Complaint: Abdominal Pain Stated Complaint: LOWER ABD PAIN Time Seen by Provider: 11/27/18 11:56 - HPI History of Present Illness: LLq pain, intermittent no bloody stool BM this AM no nausea or vomiting hx diverticulosis pmh htn hpld hypothyroidism VSS no pain at present MSE Completed MSE screening note: Focused history and physical exam performed. Due to findings the following was ordered: ED Disposition for MSE Condition: Stable Instructions: Abdominal Pain (ED)
[2018-11-27 12:16] LABS: Basophils % (Auto) 0.4 % (0.0-1.8); Eosinophils # (Auto) 0.1 K/mm3 (0.0-0.4); Eosinophils % (Auto) 0.5 % (0.0-4.3); Hematocrit 45.2 % (30.3-42.9); Lymphocytes # (Auto) 2.3 K/mm3 (1.2-5.4); Lymphocytes % (Auto) 19.3 % (13.4-35.0); Mean Corpuscular HGB Conc 33 % (30-34); Mean Corpuscular Volume 90 fl (79-97); Monocytes # (Auto) 0.9 K/mm3 (0.0-0.8); Monocytes % (Auto) 7.7 % (0.0-7.3); Platelet Count 190 K/mm3 (140-440); Red Blood Count 5.05 M/mm3 (3.65-5.03); Red Cell Distribution Width 13.3 % (13.2-15.2)
[2018-11-27 12:39] LABS: Bilirubin,Urine NEG (Negative); Blood,Urine MOD (Negative); Color,Urine Straw (Yellow); Mucus,Urine FEW /HPF; Protein,Urine <15 mg/dL mg/dL (Negative); Urobilinogen,Urine < 2.0 mg/dL (<2.0)
[2018-11-27 12:53] LABS: BUN/Creatinine Ratio 15; Blood Urea Nitrogen 12 mg/dL (7-17); Calcium 9.4 mg/dL (8.4-10.2); Hemolysis Index 21
--- NOTE | 2018-11-27 13:02 | Emergency Department Report ---
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 She has a history of diverticulitis but says that it does not feel the same as that. She denies any problems with bowel or bladder. She denies any fever, nausea, vomiting. She had a CT scan of the abdomen and pelvis done a few weeks ago here that resulted as negative that was done for some right lower quadrant abdominal pain at that time. Her primary care physician is a Dr. Singh. ED Past Medical Hx - Past Medical History Previous Medical History?: Yes Hx Hypertension: Yes Hx Congestive Heart Failure: No Hx Diabetes: No Hx Asthma: No Hx COPD: No Hx HIV: No Additional medical history: hypothyroid, diverticulitis, high cholesterol - Surgical History Past Surgical History?: Yes Hx Cholecystectomy: Yes Additional Surgical History: - Social History Smoking Status: Never Smoker - Medications Home Medications: Home Medications Medication Instructions Recorded Confirmed Last Taken Type Lisinopril [Zestril TAB] 10 mg PO QDAY #30 tablet 12/10/16 09/13/18 04/28/17 Rx Ibuprofen [Motrin] 600 mg PO Q8H PRN #30 tablet 05/18/17 09/13/18 Unknown Rx Levothyroxine Sodium 1 tab PO DAILY 09/13/18 09/13/18 Unknown History Rosuvastatin Calcium 1 tab PO DAILY 09/13/18 09/13/18 Unknown History metFORMIN XR [Glucophage XR] 1 tab PO DAILY 09/13/18 09/13/18 Unknown History traMADol [Ultram] 50 mg PO Q6HR PRN #12 tablet 09/13/18 Unknown Rx Docusate Sodium [Colace] 100 mg PO BID PRN #20 capsule 11/27/18 Unknown Rx ED Review of Systems ROS: Stated complaint: LOWER ABD PAIN Other details as noted in HPI Comment: All other systems reviewed and negative Constitutional: denies: chills, fever Eyes: denies: eye pain, vision change ENT: denies: ear pain, throat pain Respiratory: denies: cough, shortness of breath Cardiovascular: denies: chest pain, palpitations Gastrointestinal: abdominal pain. denies: vomiting Genitourinary: denies: dysuria, discharge Musculoskeletal: denies: back pain, arthralgia Skin: denies: rash, change in color Neurological: denies: headache, weakness Physical Exam - Physical Exam Vital Signs: Vital Signs 11/27/18 11:56 Temperature 97.9 F Pulse Rate 91 H Respiratory 18 Rate Blood Pressure 151/88 O2 Sat by Pulse 98 Oximetry Physical Exam: GENERAL: The patient is well-developed well-nourished. HEENT: Normocephalic. Atraumatic. Patient has moist mucous membranes. EYES: Extraocular motions are intact. NECK: Supple. Trachea is midline. CHEST/LUNGS: Clear to auscultation. There is no respiratory distress noted. HEART/CARDIOVASCULAR: Regular. There is no tachycardia. There is no obvious murmur. ABDOMEN: Abdomen is soft, nontender. Unable to reproduce pain to palpation. No guarding. Patient has normal bowel sounds. There is no abdominal distention. SKIN: Skin is warm and dry. NEURO: The patient is awake, alert, and oriented. The patient is cooperative. The patient has normal speech. MUSCULOSKELETAL: There is no tenderness or deformity. There is no limitation range of motion. There is no evidence of acute injury. ED Course Vital Signs 11/27/18 11:56 Temperature 97.9 F Pulse Rate 91 H Respiratory 18 Rate Blood Pressure 151/88 O2 Sat by Pulse 98 Oximetry ED Medical Decision Making - Lab Data Result diagrams: 11/27/18 12:06 11/27/18 12:06 - Radiology Data Radiology results: report reviewed Abdominal x-ray shows nonspecific nonobstructive bowel gas and increased stool volume. - Medical Decision Making This patient, with history of diverticulitis, presents to the emergency department with some left lower quadrant abdominal pain has been going on since yesterday. No problems with bowel or bladder, fever. On examination she is not very tender to palpation. Labs are grossly unremarkable without any significant leukocytosis and normal metabolic panel. Abdominal x-ray shows nonspecific nonobstructive bowel gas and increased stool volume. The patient has had a recent CT scan of the abdomen and pelvis with IV contrast that did not show any acute process at that time. She has good follow-up with primary care and gastroenterology. She was discharged home with some Colace and instructions to follow-up with her physicians. She will return to the ER with any worsening of her symptoms or any acute distress. - Differential Diagnosis diverticulitis, constipation, colitis, food poisoning Critical Care Time: No Critical care attestation.: If time is entered above; I have spent that time in minutes in the direct care of this critically ill patient, excluding procedure time. 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 Return to the emergency Department with any worsening of your symptoms or any acute distress. Prescriptions: Docusate Sodium [Colace] 100 mg PO BID PRN #20 capsule PRN Reason: Constipation Referrals: Primary Care Provider, Your [Other] - 3-5 Days Forms: Work/School Release Form(ED) Time of Disposition: 13:53
--- NOTE | 2018-11-27 14:25 | XRay Report ---
PROCEDURE: XR ABDOMEN 2V TECHNIQUE: Supine and upright view of the abdomen was obtained. HISTORY: abd pain COMPARISONS: Prior study 12/07/2016 FINDINGS: Surgical clips visualized right upper quadrant. Moderate amount of stool seen in the right side of th e colon and transverse colon. No abnormal masses are seen. No evidence of bowel obstruction or free i ntraperitoneal gas. No acute bone abnormalities are identified. Small benign-appearing calcification seen in the left lower pelvis which were visualized on the prior study. IMPRESSION: Postsurgical changes right upper quadrant. No acute abnormalities are identified.. This document is electronically signed by Kenji Ortega MD., November 27 2018 02:23:17 PM ET
== END 2018-11-27 14:07 | disposition home or self-care (01) ==
LOC: ED 11:52
DX: K59.00 Constipation, unspecified (principal); Z90.49 Acquired absence of other specified parts of digestive tract; I10 Essential (primary) hypertension
CPT/HCPCS: 36415; 74019; 80048; 81001; 85025

== ENCOUNTER 2019-08-23 10:11 | Emergency (ER) | payer BC ==
[2019-08-23 10:50] VITALS: BP 166/84
[2019-08-23] MEDS ORDERED: predniSONE 20 MG TAB PO ONE (12:20)
[2019-08-23] MEDS ORDERED: IBUPROFEN 800 MG TAB PO ONE (12:20)
--- NOTE | 2019-08-23 12:20 | XRay Report ---
CHEST 2 VIEWS INDICATION / CLINICAL INFORMATION: weakness. COMPARISON: None available. FINDINGS: SUPPORT DEVICES: None. HEART / MEDIASTINUM: No significant abnormality. LUNGS / PLEURA: No significant pulmonary or pleural abnormality. No pneumothorax. ADDITIONAL FINDINGS: No significant additional findings. IMPRESSION: 1. No acute findings. Signer Name: Jamar Howell MD Signed: 08/23/2019 12:16 PM Workstation Name: [id number]
--- NOTE | 2019-08-23 12:20 | Emergency Department Report ---
Minor Respiratory - HPI Chief Complaint: Weakness Stated Complaint: FLU SYM Time Seen by Provider: 08/23/19 11:55 Duration: 3 Days Severity: mild Minor Respiratory: Yes Able to Tolerate Fluids, Yes Cough, No Rhinorrhea, No Sore Throat, No Ear Pain, No Sick Contacts, No Hemoptysis, No Chest Pain, No Shortness of Breath, No Fever Other History: 63 YO WITH COLD LIKE SYMPTOMS AND COUGH FOR OVER 3 DAYS. VSS ON ADMIT TO ER. AMBULATORY AND NON TOXIC. TAKING PO. DID NOT SEE PCP. TOOK OTC AT HOME WITH NO RELIEF. ED Review of Systems ROS: Stated complaint: FLU SYM Other details as noted in HPI Comment: All other systems reviewed and negative ED Past Medical Hx - Past Medical History Previous Medical History?: Yes Hx Hypertension: Yes Hx Congestive Heart Failure: No Hx Diabetes: No Hx Asthma: No Hx COPD: No Hx HIV: No Additional medical history: hypothyroid, diverticulitis, high cholesterol - Surgical History Past Surgical History?: Yes Hx Cholecystectomy: Yes Additional Surgical History: - Family History Family history: no significant - Social History Smoking Status: Never Smoker Substance Use Type: None - Medications Home Medications: Home Medications Medication Instructions Recorded Confirmed Last Taken Type lisinopriL [Zestril TAB] 10 mg PO QDAY #30 tablet 12/10/16 09/13/18 04/28/17 Rx Levothyroxine Sodium 1 tab PO DAILY 09/13/18 09/13/18 Unknown History Rosuvastatin Calcium 1 tab PO DAILY 09/13/18 09/13/18 Unknown History metFORMIN XR [Glucophage XR] 1 tab PO DAILY 09/13/18 09/13/18 Unknown History Docusate Sodium [Colace] 100 mg PO BID PRN #20 capsule 11/27/18 Unknown Rx Ibuprofen [Motrin] 800 mg PO Q8HR PRN #30 tablet 08/23/19 Unknown Rx Minor Respiratory Exam - Exam General: Vital signs noted. No distress. Alert and acting appropriately. HEENT: Yes Moist Mucous Membranes, No Pharyngeal Erythema, No Pharyngeal Exudates, No Rhinorrhea, No Conjuctival Injection, No Frontal Tenderness, No Maxillary Tenderness Ear: Neither TM Bulge, Neither TM Erythema, Neither EAC Pain, Neither EAC Discharge Neck: Yes Supple, No Adenopathy Lungs: Yes Good Air Exchange, No Wheezes, No Ronchi, No Stridor, No Cough, No Labored Respirations, No Retractions, No Use of Accessory Muscles, No Other Abnormal Lung Sounds Heart: Yes Regular, No Murmur Abdomen: Yes Normal Bowel Sounds, No Tenderness, No Peritoneal Signs Skin: No Rash, No Edema Neurologic: Alert and oriented, no deficits. Musculoskeletal: Unremarkable. ED Course Vital Signs 08/23/19 10:47 Temperature 98.5 F Pulse Rate 93 H Respiratory 16 Rate Blood Pressure 166/84 O2 Sat by Pulse 97 Oximetry ED Medical Decision Making - Radiology Data Radiology results: report reviewed, image reviewed - Medical Decision Making Labs 08/23/19 Unknown Influenza A (Rapid) Negative Influenza B (Rapid) Negative Vital Signs - 24 hr 08/23/19 10:47 Temperature 98.5 F Pulse Rate 93 H Respiratory 16 Rate Blood Pressure 166/84 O2 Sat by Pulse 97 Oximetry medicated for pain in ER flu neg xray without consolidation no cp taking po ambulatory in ER will dc home with pcp follow up for recheck in 48 hours. - Differential Diagnosis uri- flu/pna Critical care attestation.: If time is entered above; I have spent that time in minutes in the direct care of this critically ill patient, excluding procedure time. ED Disposition Clinical Impression: Viral respiratory illness, URTI (acute upper respiratory infection) Disposition: DC-01 TO HOME OR SELFCARE Is pt being admited?: No Does the pt Need Aspirin: No Condition: Stable Instructions: Upper Respiratory Infection (ED) Additional Instructions: REST STAY WELL HYDRATED MOTRIN OR TYLENOL FOR PAIN OR FEVER FLU NEGATIVE TODAY XRAY NORMAL TODAY FOLLOW UP WITH PCP IN 48 HOURS FOR RECHECK REFERRAL BELOW DIET AND ACTIVITY TOLERATED OVER THE COUNTER DELSYM FOR COUGH Prescriptions: Ibuprofen [Motrin] 800 mg PO Q8HR PRN #30 tablet PRN Reason: Pain, Moderate (4-6) Referrals: THEA MONTES MD [Primary Care Provider] - 3-5 Days TARYN ORONA MD [Staff Physician] - 3-5 Days Time of Disposition: 12:29
== END 2019-08-23 13:14 | disposition home or self-care (01) ==
LOC: ED 10:11
DX: J98.8 Other specified respiratory disorders (principal); J06.9 Acute upper respiratory infection, unspecified; I10 Essential (primary) hypertension; E78.00 Pure hypercholesterolemia, unspecified; Z79.899 Other long term (current) drug therapy; Z98.890 Other specified postprocedural states
CPT/HCPCS: 71046; 87400; 99284; J7512

== ENCOUNTER 2019-09-29 21:54 | Emergency (ER) | payer BC ==
[2019-09-29] MEDS ORDERED: ACETAMINOPHEN 325 MG TAB PO ONE (23:25)
[2019-09-29] MEDS ORDERED: ACETAMINOPHEN 325 MG TAB ONE (23:28)
--- NOTE | 2019-09-30 00:03 | Emergency Department Report ---
- General Chief Complaint: Upper Respiratory Infection Stated Complaint: FLU SYMPTOMS Time Seen by Provider: 09/30/19 00:00 Source: patient Mode of arrival: Ambulatory Limitations: No Limitations - History of Present Illness Initial Comments: Patient is a 63-year-old female presents emergent complaints of fever, runny nose, cough, headache, body aches. Patient states her symptoms going on for 2 days. Patient states her symptoms are worsening. Patient states her fever is high. Patient states that her fever comes down with Tylenol. Patient denies chest pain. Patient denies shortness of breath. Patient denies neck pain. Patient denies nausea vomiting. Patient states her symptoms are better with rest and cold medications. MD Complaint: fever, cough, rhinorrhea -: Sudden, days(s) (2 days) Severity: severe Consistency: constant Improves With: NSAID, OTC cold medicine, rest Worsens With: activity Context: sick contacts Associated Symptoms: fever, chills, myalgias, headache, rhinorrhea, cough. denies: diaphoresis, nasal congestion, sore throat, stiff neck, chest pain, shortness of breath, abdominal pain, nausea, vomiting, diarrhea, dysuria, rash, confusion, right sweats, weight loss, epistaxis, hoarseness, ear pain Treatments Prior to Arrival: Acetaminophen, Ibuprofen - Related Data Home Medications Medication Instructions Recorded Confirmed Last Taken Levothyroxine Sodium 1 tab PO DAILY 09/13/18 09/13/18 Unknown Rosuvastatin Calcium 1 tab PO DAILY 09/13/18 09/13/18 Unknown metFORMIN XR [Glucophage XR] 1 tab PO DAILY 09/13/18 09/13/18 Unknown Previous Rx's Medication Instructions Recorded Last Taken Type lisinopriL [Zestril TAB] 10 mg PO QDAY #30 tablet 12/10/16 04/28/17 Rx Docusate Sodium [Colace] 100 mg PO BID PRN #20 capsule 11/27/18 Unknown Rx Ibuprofen [Motrin 800 MG tab] 800 mg PO Q8HR PRN #30 tablet 09/30/19 Unknown Rx Oseltamivir [Tamiflu] 75 mg PO BID 5 Days #10 cap 09/30/19 Unknown Rx Allergies Allergy/AdvReac Type Severity Reaction Status Date / Time No Known Allergies Allergy Verified 11/27/18 11:57 ED Review of Systems ROS: Stated complaint: FLU SYMPTOMS Other details as noted in HPI Constitutional: chills, fever Eyes: denies: eye pain, eye discharge, vision change ENT: denies: ear pain, throat pain Respiratory: cough. denies: shortness of breath, wheezing Cardiovascular: denies: chest pain, palpitations Endocrine: no symptoms reported Gastrointestinal: denies: abdominal pain, nausea, diarrhea Genitourinary: denies: urgency, dysuria, discharge Musculoskeletal: denies: back pain, joint swelling, arthralgia Skin: denies: rash, lesions Neurological: headache. denies: weakness, paresthesias Psychiatric: denies: anxiety, depression Hematological/Lymphatic: denies: easy bleeding, easy bruising ED Past Medical Hx - Past Medical History Previous Medical History?: Yes Hx Hypertension: Yes Hx Congestive Heart Failure: No Hx Diabetes: No Hx Asthma: No Hx COPD: No Hx HIV: No Additional medical history: hypothyroid, diverticulitis, high cholesterol - Surgical History Past Surgical History?: Yes Hx Cholecystectomy: Yes Additional Surgical History: - Family History Family history: no significant - Social History Smoking Status: Never Smoker Substance Use Type: None - Medications Home Medications: Home Medications Medication Instructions Recorded Confirmed Last Taken Type lisinopriL [Zestril TAB] 10 mg PO QDAY #30 tablet 12/10/16 09/13/18 04/28/17 Rx Levothyroxine Sodium 1 tab PO DAILY 09/13/18 09/13/18 Unknown History Rosuvastatin Calcium 1 tab PO DAILY 09/13/18 09/13/18 Unknown History metFORMIN XR [Glucophage XR] 1 tab PO DAILY 09/13/18 09/13/18 Unknown History Docusate Sodium [Colace] 100 mg PO BID PRN #20 capsule 11/27/18 Unknown Rx Ibuprofen [Motrin 800 MG tab] 800 mg PO Q8HR PRN #30 tablet 09/30/19 Unknown Rx Oseltamivir [Tamiflu] 75 mg PO BID 5 Days #10 cap 09/30/19 Unknown Rx ED Physical Exam - General Limitations: No Limitations General appearance: alert, in no apparent distress - Head Head exam: Present: atraumatic, normocephalic - Eye Eye exam: Present: normal appearance - ENT ENT exam: Present: TM's normal bilaterally, normal external ear exam - Neck Neck exam: Present: normal inspection, full ROM. Absent: tenderness, meningismus, lymphadenopathy, thyromegaly - Respiratory Respiratory exam: Present: normal lung sounds bilaterally. Absent: respiratory distress, wheezes, rales - Cardiovascular Cardiovascular Exam: Present: regular rate, normal rhythm. Absent: systolic murmur, diastolic murmur, rubs, gallop - GI/Abdominal GI/Abdominal exam: Present: soft, normal bowel sounds. Absent: distended, tenderness, guarding - Extremities Exam Extremities exam: Present: normal inspection - Back Exam Back exam: Present: normal inspection - Neurological Exam Neurological exam: Present: alert, oriented X3 - Psychiatric Psychiatric exam: Present: normal affect, normal mood - Skin Skin exam: Present: warm, dry, intact, normal color. Absent: rash ED Course Vital Signs 09/29/19 09/30/19 09/30/19 22:38 00:07 01:30 Temperature 102.9 F H 101.4 F H 100 F H Pulse Rate 101 H 89 Respiratory 16 16 Rate Blood Pressure 127/92 Blood Pressure 137/100 [Left] O2 Sat by Pulse 94 99 Oximetry - Reevaluation(s) Reevaluation #1: I discussed all results with patient. Discussed plan of care with patient. Patient agrees with plan of care. Patient will be discharged home. Patient stable for discharge. Patient given discharge instructions. Patient voiced understanding of discharge instructions. 09/30/19 01:16 ED Medical Decision Making - Lab Data Result diagrams: 09/30/19 00:03 09/30/19 00:03 flu negative - Medical Decision Making is a 63-year-old female with complaints of upper infection symptoms. Patient with fever, headache, body aches. Patient's labs are unremarkable. Pat nt's flu is negative. Patient's clinical findings and exam are consistent with influenza. Patient will be treated with Tamiflu. Patient agrees with plan of care. Patient is stable for discharge. Patient was discharged home. - Differential Diagnosis flu. uri. fever. cough Critical care attestation.: If time is entered above; I have spent that time in minutes in the direct care of this critically ill patient, excluding procedure time. ED Disposition Clinical Impression: Influenza Fever Qualifiers: Fever type: unspecified Qualified Code(s): R50.9 - Fever, unspecified URI (upper respiratory infection) Qualifiers: URI type: unspecified URI Qualified Code(s): J06.9 - Acute upper respiratory infection, unspecified Disposition: DC-01 TO HOME OR SELFCARE Is pt being admited?: No Does the pt Need Aspirin: No Condition: Stable Instructions: Fever in Adults (ED), Influenza (ED), Upper Respiratory Infection (ED), Cold Symptoms (ED) Additional Instructions: Patient follow up with primary care 2-3 days. Patient to return to ER if condition worsens, changes or new symptoms arise. Patient to take Tylenol or ibuprofen when necessary for pain or fever. Patient to take meds as instructed. Patient to increase water. Prescriptions: Ibuprofen [Motrin 800 MG tab] 800 mg PO Q8HR PRN #30 tablet PRN Reason: Pain, Moderate (4-6) Oseltamivir [Tamiflu] 75 mg PO BID 5 Days #10 cap Referrals: PRIMARY CARE,MD [Primary Care Provider] - 2-3 Days Forms: Work/School Release Form(ED) Time of Disposition: 01:22 Print Language: ITALIAN
[2019-09-30 00:12] VITALS: BP 137/100
[2019-09-30 00:22] LABS: Basophils % (Auto) 0.5 % (0.0-1.8); Eosinophils % (Auto) 0.4 % (0.0-4.3); Hematocrit 44.5 % (30.3-42.9); Hemoglobin 15.3 gm/dl (10.1-14.3); Lymphocytes # (Auto) 1.1 K/mm3 (1.2-5.4); Lymphocytes % (Auto) 14.4 % (13.4-35.0); Mean Corpuscular HGB Conc 34 % (30-34); Mean Corpuscular Volume 87 fl (79-97); Monocytes # (Auto) 0.9 K/mm3 (0.0-0.8); Monocytes % (Auto) 11.8 % (0.0-7.3); Platelet Count 162 K/mm3 (140-440); Red Cell Distribution Width 13.4 % (13.2-15.2)
[2019-09-30 00:36] LABS: Calcium 9.3 mg/dL (8.4-10.2)
== END 2019-09-30 01:30 | disposition home or self-care (01) ==
LOC: ED 21:54
DX: J11.1 Influenza due to unidentified influenza virus with other respiratory manifestations (principal); I10 Essential (primary) hypertension; E03.9 Hypothyroidism, unspecified; Z90.49 Acquired absence of other specified parts of digestive tract; Z98.890 Other specified postprocedural states; Z79.1 Long term (current) use of non-steroidal anti-inflammatories (NSAID); Z79.899 Other long term (current) drug therapy
CPT/HCPCS: 36415; 80048; 85025; 87400

== ENCOUNTER 2020-03-11 10:55 | Emergency (ER) | payer BC ==
--- NOTE | 2020-03-11 11:17 | Emergency Department Report ---
Blank Doc - Documentation Documentation: 64-year-old female that presents with flank pain with dysuria and pelvic pain during urination. Denies any discharge. This initial assessment/diagnostic orders/clinical plan/treatment(s) is/are subject to change based on patient's health status, clinical progression and re-assessment by fellow clinical providers in the ED. Further treatment and workup at subsequent clinical providers discretion. Patient/guardians urged not to elope from the ED as their condition may be serious if not clinically assessed and managed. Initial orders include: 1- Patient sent to [facility] for further evaluation and treatment 2- UA
[2020-03-11 11:40] LABS: Bilirubin,Urine NEG (Negative); Blood,Urine MOD (Negative); Color,Urine Yellow (Yellow); Mucus,Urine FEW /HPF; Urobilinogen,Urine < 2.0 mg/dL (<2.0)
[2020-03-11] MEDS ORDERED: HYDROcodone/ACETAMINOPHEN 10-325MG TAB PO ONE (11:47)
[2020-03-11] MEDS ORDERED: SODIUM CHLORIDE 0.9% 1000 ML 1,000 ML IV ONE (11:49)
[2020-03-11] MEDS ORDERED: KETOROLAC 30 MG/1 ML INJ IV ONE (11:49)
--- NOTE | 2020-03-11 12:34 | Emergency Department Report ---
ED Female HPI - General Chief complaint: Urogenital-Female Stated complaint: UTI Time Seen by Provider: 03/11/20 11:16 Source: patient Mode of arrival: Ambulatory Limitations: No Limitations - History of Present Illness Initial comments: This is a 64-year-old female nontoxic, well nourished in appearance, no acute signs of distress presents to the ED with c/o of dysuria, bilateral flank pain and pelvic pressure x1 day. Patient stated pelvic pain is during urinating otherwise denies any pelvic pain. Patient denies any vaginal discharge, bleeding , ulcers or lesions. Patient denies any abdominal pain. Patient denies any nausea, vomiting, chest pain, shortness of breathe, fever, chills, headache, back pain, numbness, tingling, stiff neck. Patient denies any other urinary symptoms. Patient denies being sexually active. Patient denies any allergies. MD Complaint: dysuria, pelvic pain -: days(s) Severity: mild Severity scale (0 -10): 3 Quality: burning Consistency: intermittent Improves with: none Worsens with: urination Are you Now?: No Associated Symptoms: dysuria. denies: vaginal discharge, vaginal bleeding, abdominal pain, nausea/vomiting, fever/chills, headaches, loss of appetite, hematuria, rash, seizure, shortness of breath, syncope, weakness - Related Data Home Medications Medication Instructions Recorded Confirmed Last Taken Levothyroxine Sodium 1 tab PO DAILY 09/13/18 09/13/18 Unknown Rosuvastatin Calcium 1 tab PO DAILY 09/13/18 09/13/18 Unknown metFORMIN XR [Glucophage XR] 1 tab PO DAILY 09/13/18 09/13/18 Unknown Previous Rx's Medication Instructions Recorded Last Taken Type lisinopriL [Zestril TAB] 10 mg PO QDAY #30 tablet 12/10/16 04/28/17 Rx Docusate Sodium [Colace] 100 mg PO BID PRN #20 capsule 11/27/18 Unknown Rx Ibuprofen [Motrin 800 MG tab] 800 mg PO Q8HR PRN #30 tablet 09/30/19 Unknown Rx Oseltamivir [Tamiflu] 75 mg PO BID 5 Days #10 cap 09/30/19 Unknown Rx Ciprofloxacin HCl [Ciprofloxacin 500 mg PO Q12HR #14 tab 03/11/20 Unknown Rx TAB] Ondansetron [Zofran Odt] 4 mg PO Q8HR PRN #12 tab.rapdis 03/11/20 Unknown Rx metroNIDAZOLE [Flagyl] 500 mg PO Q12HR #14 tab 03/11/20 Unknown Rx Allergies Allergy/AdvReac Type Severity Reaction Status Date / Time No Known Allergies Allergy Verified 11/27/18 11:57 ED Review of Systems ROS: Stated complaint: UTI Other details as noted in HPI Constitutional: denies: chills, fever Eyes: denies: eye pain, eye discharge, vision change ENT: denies: ear pain, throat pain Respiratory: denies: cough, shortness of breath, wheezing Cardiovascular: denies: chest pain, palpitations Endocrine: no symptoms reported Gastrointestinal: denies: abdominal pain, nausea, diarrhea Genitourinary: dysuria. denies: urgency, discharge Musculoskeletal: denies: back pain, joint swelling, arthralgia Skin: denies: rash, lesions Neurological: denies: headache, weakness, paresthesias Psychiatric: denies: anxiety, depression Hematological/Lymphatic: denies: easy bleeding, easy bruising ED Past Medical Hx - Past Medical History Previous Medical History?: Yes Hx Hypertension: Yes Hx Congestive Heart Failure: No Hx Diabetes: No Hx Asthma: No Hx COPD: No Hx HIV: No Additional medical history: hypothyroid, diverticulitis, high cholesterol - Surgical History Past Surgical History?: Yes Hx Cholecystectomy: Yes Additional Surgical History: - Social History Smoking Status: Never Smoker Substance Use Type: None - Medications Home Medications: Home Medications Medication Instructions Recorded Confirmed Last Taken Type lisinopriL [Zestril TAB] 10 mg PO QDAY #30 tablet 12/10/16 09/13/18 04/28/17 Rx Levothyroxine Sodium 1 tab PO DAILY 09/13/18 09/13/18 Unknown History Rosuvastatin Calcium 1 tab PO DAILY 09/13/18 09/13/18 Unknown History metFORMIN XR [Glucophage XR] 1 tab PO DAILY 09/13/18 09/13/18 Unknown History Docusate Sodium [Colace] 100 mg PO BID PRN #20 capsule 11/27/18 Unknown Rx Ibuprofen [Motrin 800 MG tab] 800 mg PO Q8HR PRN #30 tablet 09/30/19 Unknown Rx Oseltamivir [Tamiflu] 75 mg PO BID 5 Days #10 cap 09/30/19 Unknown Rx Ciprofloxacin HCl [Ciprofloxacin 500 mg PO Q12HR #14 tab 03/11/20 Unknown Rx TAB] Ondansetron [Zofran Odt] 4 mg PO Q8HR PRN #12 tab.rapdis 03/11/20 Unknown Rx metroNIDAZOLE [Flagyl] 500 mg PO Q12HR #14 tab 03/11/20 Unknown Rx ED Physical Exam - General Limitations: No Limitations General appearance: alert, in no apparent distress - Head Head exam: Present: atraumatic, normocephalic - Eye Eye exam: Present: normal appearance - Neck Neck exam: Present: normal inspection, full ROM. Absent: tenderness, meningismus, lymphadenopathy - Respiratory Respiratory exam: Present: normal lung sounds bilaterally. Absent: respiratory distress, wheezes, rales, rhonchi, stridor, chest wall tenderness, accessory muscle use, decreased breath sounds, prolonged expiratory - Cardiovascular Cardiovascular Exam: Present: regular rate, normal rhythm, normal heart sounds. Absent: bradycardia, tachycardia, irregular rhythm, systolic murmur, diastolic murmur, rubs, gallop - GI/Abdominal GI/Abdominal exam: Present: soft, normal bowel sounds. Absent: distended, tenderness, guarding, rebound, rigid, diminished bowel sounds - Extremities Exam Extremities exam: Present: normal inspection, full ROM - Back Exam Back exam: Present: normal inspection, full ROM. Absent: tenderness, CVA tenderness (R), CVA tenderness (L), muscle spasm, paraspinal tenderness, vertebral tenderness, rash noted - Neurological Exam Neurological exam: Present: alert, oriented X3, normal gait - Psychiatric Psychiatric exam: Present: normal affect, normal mood - Skin Skin exam: Present: warm, dry, intact, normal color. Absent: rash ED Course Vital Signs 03/11/20 03/11/20 03/11/20 11:02 11:21 13:58 Temperature 98.0 F 98 F Pulse Rate 80 79 68 Respiratory 18 18 Rate Blood Pressure 128/77 128/77 144/72 O2 Sat by Pulse 97 97 98 Oximetry - Reevaluation(s) Reevaluation #1: 03/11/20 12:37 Patient is speaking in full sentences with no signs of distress noted. ED Medical Decision Making - Lab Data Result diagrams: 03/11/20 12:06 03/11/20 12:06 Lab Results 03/11/20 03/11/20 03/11/20 Range/Units 11:24 12:06 12:06 WBC 9.7 (4.5-11.0) K/mm3 RBC 5.13 H (3.65-5.03) M/mm3 Hgb 15.1 H (10.1-14.3) gm/dl Hct 45.4 H (30.3-42.9) % MCV 89 (79-97) fl MCH 29 (28-32) pg MCHC 33 (30-34) % RDW 13.5 (13.2-15.2) % Plt Count 188 (140-440) K/mm3 Lymph % (Auto) 20.2 (13.4-35.0) % [place] % (Auto) 9.0 H (0.0-7.3) % Eos % (Auto) 0.6 (0.0-4.3) % Baso % (Auto) 0.4 (0.0-1.8) % Lymph # 2.0 (1.2-5.4) K/mm3 [place] # 0.9 H (0.0-0.8) K/mm3 Eos # 0.1 (0.0-0.4) K/mm3 Baso # 0.0 (0.0-0.1) K/mm3 Seg Neutrophils % 69.8 (40.0-70.0) % Seg Neutrophils # 6.8 (1.8-7.7) K/mm3 Sodium 139 (137-145) mmol/L Potassium 3.9 (3.6-5.0) mmol/L Chloride 102.5 (98-107) mmol/L Carbon Dioxide 24 (22-30) mmol/L Anion Gap 16 mmol/L BUN 15 (7-17) mg/dL Creatinine 0.9 (0.7-1.2) mg/dL Estimated GFR > 60 ml/min BUN/Creatinine Ratio 17 % Glucose 109 H (65-100) mg/dL Calcium 9.2 (8.4-10.2) mg/dL Total Bilirubin 0.50 (0.1-1.2) mg/dL AST 13 (5-40) units/L ALT 17 (7-56) units/L Alkaline Phosphatase 82 (35-129) units/L Total Protein 6.2 L (6.3-8.2) g/dL Albumin 3.8 L (3.9-5) g/dL Albumin/Globulin Ratio 1.6 % Urine Color Yellow (Yellow) Urine Turbidity Clear (Clear) Urine pH 6.0 (5.0-7.0) Ur Specific [place] 1.016 (1.003-1.030) Urine Protein 100 mg/dl (Negative) mg/dL Urine Glucose (UA) Neg (Negative) mg/dL Urine Ketones Neg (Negative) mg/dL Urine Blood Mod (Negative) Urine Nitrite Neg (Negative) Urine Bilirubin Neg (Negative) Urine Urobilinogen < 2.0 (<2.0) mg/dL Ur Leukocyte Esterase Neg (Negative) Urine WBC (Auto) 2.0 (0.0-6.0) /HPF Urine RBC (Auto) 21.0 (0.0-6.0) /HPF Urine Mucus Few /HPF Urine Yeast (Budding) Few /HPF - Radiology Data Referring Physician: ARON MCKENNA Patient Name: WILLY ERAZO Date of : 1955 Sex: Female Report Date: 2020-03-11 Report Status: Finalized [facility] [address] [place] [address] Cat Scan Report Signed Patient: WILLY ERAZO MR#: [id number] : 1955 Acct:[id number] Age/Sex: 64 / F ADM Date: 03/11/20 Loc: ED Attending Dr: Ordering Physician: ARON MCKENNA NP Date of Service: 03/11/20 Procedure(s): CT abdomen pelvis wo con Accession Number(s): [id number] cc: ARON MCKENNA NP CT ABDOMEN AND PELVIS WITHOUT CONTRAST INDICATION / CLINICAL INFORMATION: Lower pelvic pain and unspecified flank pain. TECHNIQUE: Axial CT images were obtained through the abdomen and pelvis without IV contrast. All CT scans at this location are performed using CT dose reduction for ALARA by means of automated exposure control. COMPARISON: CT abdomen and pelvis with contrast from 11/10/2018. FINDINGS: LOWER CHEST: No significant abnormality. LIVER: No significant abnormality. GALLBLADDER: Surgically absent. BILE DUCTS: No significant abnormality. PANCREAS: No significant abnormality. SPLEEN: No significant abnormality. ADRENALS: No significant abnormality. RIGHT KIDNEY / URETER: No significant abnormality. LEFT KIDNEY / URETER: No significant abnormality. STOMACH / SMALL BOWEL: No significant abnormality. COLON: Diverticulosis is present throughout the colon, most notably along the sigmoid colon where there is mild thickening and surrounding inflammation along the proximal third of the sigmoid colon, consistent with acute diverticulitis. No additional significant abnormality. APPENDIX: No significant abnormality. PERITONEUM: No free fluid. No free air. No fluid collection. LYMPH NODES: No significant adenopathy. AORTA / ARTERIES: No significant abnormality. IVC / VEINS: No significant abnormality. URINARY BLADDER: No significant abnormality. REPRODUCTIVE ORGANS: Prior hysterectomy. No significant abnormality. ADDITIONAL FINDINGS: Similar umbilical and infraumbilical hernias containing fat without associated inflammation. SKELETAL SYSTEM: No acute abnormality or significant change. IMPRESSION: 1. Uncomplicated acute sigmoid diverticulitis. 2. Additional findings as above. Signer Name: Tacho Morgan MD Signed: 03/11/2020 12:56 PM Workstation Name: [id number] Transcribed By: SHELDON Dictated By: Tacho Morgan MD Electronically Authenticated By: Tacho Morgan MD Signed Date/Time: 03/11/20 1256 DD/ 1251 TD/TT: - Medical Decision Making This is a 64-year-old male that presents with a diverticulitis. Patient is stable and was examined by me. There is no abdominal tenderness. Negative signs of symptoms of appendicitis. Labs obtained. UA obtained. CT of abdomen obtained and dictated by the radiologist. Patient is notified of the report with no questions noted by the patient. Vital signs are stable prior to discharge. Patient received medical treatment in the ED which patient stated symptoms has resovled and subsided. Patient was given IV dose of levofloxacin and Flagyl. Will discharge with ciprofloxacin and Flagyl. Patient was also instructed to Follow-up with a primary care and returner doctor in 3-5 days or if symptoms worsen and continue return to emergency room as soon as possible. At time of discharge, the patient does not seem toxic or ill in appearance. No acute signs of distress noted. Patient agrees to discharge treatment plan of care. No further questions noted by the patient. Critical care attestation.: If time is entered above; I have spent that time in minutes in the direct care of this critically ill patient, excluding procedure time. ED Disposition Clinical Impression: Diverticulitis Disposition: DC-01 TO HOME OR SELFCARE Is pt being admited?: No Does the pt Need Aspirin: No Condition: Stable Instructions: Diverticulitis (ED) Additional Instructions: Follow-up with a primary care and returner doctor in 3-5 days or if symptoms worsen and continue return to emergency room as soon as possible. Prescriptions: Ciprofloxacin HCl [Ciprofloxacin TAB] 500 mg PO Q12HR #14 tab metroNIDAZOLE [Flagyl] 500 mg PO Q12HR #14 tab Ondansetron [Zofran Odt] 4 mg PO Q8HR PRN #12 tab.rapdis PRN Reason: Nausea Referrals: PRIMARY MD SIMON [Primary Care Provider] - 3-5 Days TARYN ORONA MD [Staff Physician] - 3-5 Days [facility] [Provider Group] - 3-5 Days Forms: Work/School Release Form(ED)
[2020-03-11 12:53] LABS: Alanine Aminotransferase 17 units/L (7-56); Albumin 3.8 g/dL (3.9-5); BUN/Creatinine Ratio 17; Basophils % (Auto) 0.4 % (0.0-1.8); Blood Urea Nitrogen 15 mg/dL (7-17); Calcium 9.2 mg/dL (8.4-10.2); Eosinophils # (Auto) 0.1 K/mm3 (0.0-0.4); Eosinophils % (Auto) 0.6 % (0.0-4.3); Hematocrit 45.4 % (30.3-42.9); Hemoglobin 15.1 gm/dl (10.1-14.3); Hemolysis Index 6; Lymphocytes % (Auto) 20.2 % (13.4-35.0); Mean Corpuscular HGB Conc 33 % (30-34); Mean Corpuscular Volume 89 fl (79-97); Monocytes # (Auto) 0.9 K/mm3 (0.0-0.8); Platelet Count 188 K/mm3 (140-440); Red Blood Count 5.13 M/mm3 (3.65-5.03); Red Cell Distribution Width 13.5 % (13.2-15.2)
--- NOTE | 2020-03-11 13:00 | Cat Scan Report ---
CT ABDOMEN AND PELVIS WITHOUT CONTRAST INDICATION / CLINICAL INFORMATION: Lower pelvic pain and unspecified flank pain. TECHNIQUE: Axial CT images were obtained through the abdomen and pelvis without IV contrast. All CT scans at [facility] location are performed using CT dose reduction for ALARA by means of automated exposure control. COMPARISON: CT abdomen and pelvis with contrast from 11/10/2018. FINDINGS: LOWER CHEST: No significant abnormality. LIVER: No significant abnormality. GALLBLADDER: Surgically absent. BILE DUCTS: No significant abnormality. PANCREAS: No significant abnormality. SPLEEN: No significant abnormality. ADRENALS: No significant abnormality. RIGHT KIDNEY / URETER: No significant abnormality. LEFT KIDNEY / URETER: No significant abnormality. STOMACH / SMALL BOWEL: No significant abnormality. COLON: Diverticulosis is present throughout the colon, most notably along the sigmoid colon where the re is mild thickening and surrounding inflammation along the proximal third of the sigmoid colon, con sistent with acute diverticulitis. No additional significant abnormality. APPENDIX: No significant abnormality. PERITONEUM: No free fluid. No free air. No fluid collection. LYMPH NODES: No significant adenopathy. AORTA / ARTERIES: No significant abnormality. IVC / VEINS: No significant abnormality. URINARY BLADDER: No significant abnormality. REPRODUCTIVE ORGANS: Prior hysterectomy. No significant abnormality. ADDITIONAL FINDINGS: Similar umbilical and infraumbilical hernias containing fat without associated i nflammation. SKELETAL SYSTEM: No acute abnormality or significant change. IMPRESSION: 1. Uncomplicated acute sigmoid diverticulitis. 2. Additional findings as above. Signer Name: Tacho Morgan MD Signed: 03/11/2020 12:56 PM Workstation Name: [id number]
[2020-03-11] MEDS ORDERED: metroNIDAZOLE/NS 500 MG/100 ML 500 MG/100 ML BAG IV ONE (13:03)
[2020-03-11] MEDS ORDERED: SODIUM CHLORIDE 0.9% 50 ML ONE (13:56)
[2020-03-11 14:13] VITALS: BP 144/72
== END 2020-03-11 15:00 | disposition home or self-care (01) ==
LOC: ED 10:55
DX: K57.92 Diverticulitis of intestine, part unspecified, without perforation or abscess without bleeding (principal); I10 Essential (primary) hypertension; Z90.49 Acquired absence of other specified parts of digestive tract; Z98.890 Other specified postprocedural states; Z79.1 Long term (current) use of non-steroidal anti-inflammatories (NSAID); Z79.899 Other long term (current) drug therapy
CPT/HCPCS: 36415; 74176; 80053; 81001; 85025; 96365; 96366; 96367; 96368; 96375; 99284; J1885; J1956; J7030

== ENCOUNTER 2020-04-26 07:24 | Outpatient (CLI) | payer BC ==
[2020-04-26 08:18] LABS: Chol/HDL Ratio 2.72 %
== END 2020-04-26 07:25 | disposition home or self-care (01) ==
LOC: LAB 07:24
PROVIDERS: ATTEND Internal Medicine
DX: E78.5 Hyperlipidemia, unspecified (principal); E11.9 Type 2 diabetes mellitus without complications; E03.9 Hypothyroidism, unspecified
CPT/HCPCS: 36415; 80061; 83036; 84443

== ENCOUNTER 2020-11-01 07:22 | Outpatient (CLI) | payer BC ==
[2020-11-01 08:16] LABS: Chol/HDL Ratio 1.73 %
== END 2020-11-01 07:23 | disposition home or self-care (01) ==
LOC: LAB 07:22
PROVIDERS: ATTEND Internal Medicine
DX: E78.5 Hyperlipidemia, unspecified (principal); E11.9 Type 2 diabetes mellitus without complications; E03.9 Hypothyroidism, unspecified
CPT/HCPCS: 36415; 80061; 83036; 84443

== ENCOUNTER 2021-05-02 07:40 | Outpatient (CLI) | payer BC ==
[2021-05-02 08:43] LABS: Alanine Aminotransferase 24 units/L (7-56); Albumin 4.1 g/dL (3.9-5); BUN/Creatinine Ratio 22; Blood Urea Nitrogen 20 mg/dL (7-17); Calcium 9.9 mg/dL (8.4-10.2); Chol/HDL Ratio 2.14 %; HDL Cholesterol 68 mg/dL (40-59); Hemolysis Index 4; LDL Cholesterol,Direct 78 mg/dL (50-130)
[2021-05-02 08:57] LABS: Basophils % (Auto) 0.5 % (0.0-1.8); Eosinophils # (Auto) 0.1 K/mm3 (0.0-0.4); Eosinophils % (Auto) 1.5 % (0.0-4.3); Hematocrit 43.2 % (30.3-42.9); Hemoglobin 14.8 gm/dl (10.1-14.3); Lymphocytes # (Auto) 2.5 K/mm3 (1.2-5.4); Lymphocytes % (Auto) 32.1 % (13.4-35.0); Mean Corpuscular HGB Conc 34 % (30-34); Mean Corpuscular Volume 88 fl (79-97); Monocytes # (Auto) 0.6 K/mm3 (0.0-0.8); Monocytes % (Auto) 8.2 % (0.0-7.3); Platelet Count 188 K/mm3 (140-440); Red Cell Distribution Width 13.3 % (13.2-15.2)
[2021-05-05 16:44] LABS: Vitamin D, 25-OH, D2 <4 ng/mL
== END 2021-05-02 07:41 | disposition home or self-care (01) ==
LOC: LAB 07:40
PROVIDERS: ATTEND Internal Medicine
DX: Z00.00 Encounter for general adult medical examination without abnormal findings (principal); E11.9 Type 2 diabetes mellitus without complications; E78.5 Hyperlipidemia, unspecified; E03.9 Hypothyroidism, unspecified; E55.9 Vitamin D deficiency, unspecified
CPT/HCPCS: 36415; 80053; 80061; 82306; 83036; 84443; 85025

== ENCOUNTER 2021-07-13 15:17 | Emergency (ER) | payer BC ==
[2021-07-13] MEDS ORDERED: SODIUM CHLORIDE 0.9% 1000 ML 1,000 ML IV ONE (15:59)
--- NOTE | 2021-07-13 16:00 | Emergency Department Report ---
ED Abdominal Pain HPI - General Chief Complaint: Abdominal Pain Stated Complaint: ABDOMINAL PAIN Time Seen by Provider: 07/13/21 15:38 Source: patient Mode of arrival: Ambulatory Limitations: No Limitations - History of Present Illness Initial Comments: 65 year old female with pmhx of thyroid disease, DM and HTN presents to ED with complaints of left flank pain. Onset was early thursday morning. She states pain has been intermittent and at one point there was no radiation of the pain into her left lower quadrant. She reports abdominal bloating and increased flatulence. She states currently now the pain is just mainly located to her left flank and is mild in nature. She feels like her bloating has improved and she is not as flatulent as she was but she did still decide to come in to have it checked out because its making her anxious. She denies any associated nausea, vomiting or UTI symptoms. She states that she did have 2 episodes of diarrhea Thursday but this has since resolved. She denies any melena, hematochezia or mucus in the stools. She denies similar symptoms in the past. She is status post cholecystectomy, partial hysterectomy and bladder prolapse repair. She has had colonoscopy and she states that they did see diverticulosis and she has had diverticulitis in past. She denies any chest pain, cough, sob, fever or chills, rash, saddle anesthesia, bowel or bladder incontinence. She states that she did get her [employer] vaccine booster about 1 week ago. Complaint: flank pain -: Gradual, days(s) (4) Location: L flank Severity scale (0 -10): 4 - Related Data Home Medications Medication Instructions Recorded Confirmed Last Taken Levothyroxine Sodium 1 tab PO DAILY 09/13/18 09/13/18 Unknown Rosuvastatin Calcium 1 tab PO DAILY 09/13/18 09/13/18 Unknown metFORMIN XR [Glucophage XR] 1 tab PO DAILY 09/13/18 09/13/18 Unknown Previous Rx's Medication Instructions Recorded Last Taken Type lisinopriL [Zestril TAB] 10 mg PO QDAY #30 tablet 12/10/16 04/28/17 Rx Docusate Sodium [Colace] 100 mg PO BID PRN #20 capsule 11/27/18 Unknown Rx Oseltamivir [Tamiflu] 75 mg PO BID 5 Days #10 cap 09/30/19 Unknown Rx Ciprofloxacin HCl [Ciprofloxacin 500 mg PO Q12HR #14 tab 03/11/20 Unknown Rx TAB] Ondansetron [Zofran Odt] 4 mg PO Q8HR PRN #12 tab.rapdis 03/11/20 Unknown Rx metroNIDAZOLE [Flagyl] 500 mg PO Q12HR #14 tab 03/11/20 Unknown Rx Ibuprofen [Motrin 800 MG tab] 800 mg PO Q8HR PRN #20 tablet 05/14/20 Unknown Rx traMADoL [Ultram] 50 mg PO Q6HR PRN #10 tablet 05/14/20 Unknown Rx Acetaminophen [Acetaminophen 8 650 mg PO Q8HR #30 tablet.er 07/13/21 Unknown Rx Hour] Allergies Allergy/AdvReac Type Severity Reaction Status Date / Time No Known Allergies Allergy Verified 11/27/18 11:57 ED Review of Systems ROS: Stated complaint: ABDOMINAL PAIN Other details as noted in HPI Comment: All other systems reviewed and negative Constitutional: denies: chills, diaphoresis, fever, malaise, weakness Eyes: denies: eye pain, eye discharge, vision change ENT: denies: ear pain, throat pain, dental pain, hearing loss, epistaxis, congestion Respiratory: denies: cough, shortness of breath, wheezing Cardiovascular: denies: chest pain, palpitations Gastrointestinal: as per HPI, abdominal pain, other (left flank pain ). denies: nausea, vomiting, diarrhea, constipation, hematemesis, melena, hematochezia Genitourinary: denies: urgency, dysuria, frequency, hematuria, discharge, abnormal menses, dyspareunia Musculoskeletal: denies: back pain, joint swelling, arthralgia, myalgia Skin: denies: rash, lesions, change in color, change in hair/nails, pruritus Neurological: denies: headache, weakness, paresthesias, confusion, abnormal gait, vertigo Psychiatric: denies: anxiety, depression, auditory hallucinations, visual hallucinations, homicidal thoughts Hematological/Lymphatic: denies: easy bleeding, swollen glands ED Past Medical Hx - Past Medical History Previous Medical History?: Yes Hx Hypertension: Yes Hx Congestive Heart Failure: No Hx Diabetes: No Hx Asthma: No Hx COPD: No Hx HIV: No Additional medical history: hypothyroid, diverticulitis, high cholesterol - Surgical History Past Surgical History?: Yes Hx Cholecystectomy: Yes Additional Surgical History: , Bladder Lift - Social History Smoking Status: Never Smoker Substance Use Type: None - Medications Home Medications: Home Medications Medication Instructions Recorded Confirmed Last Taken Type lisinopriL [Zestril TAB] 10 mg PO QDAY #30 tablet 12/10/16 09/13/18 04/28/17 Rx Levothyroxine Sodium 1 tab PO DAILY 09/13/18 09/13/18 Unknown History Rosuvastatin Calcium 1 tab PO DAILY 09/13/18 09/13/18 Unknown History metFORMIN XR [Glucophage XR] 1 tab PO DAILY 09/13/18 09/13/18 Unknown History Docusate Sodium [Colace] 100 mg PO BID PRN #20 capsule 11/27/18 Unknown Rx Oseltamivir [Tamiflu] 75 mg PO BID 5 Days #10 cap 09/30/19 Unknown Rx Ciprofloxacin HCl [Ciprofloxacin 500 mg PO Q12HR #14 tab 03/11/20 Unknown Rx TAB] Ondansetron [Zofran Odt] 4 mg PO Q8HR PRN #12 tab.rapdis 03/11/20 Unknown Rx metroNIDAZOLE [Flagyl] 500 mg PO Q12HR #14 tab 03/11/20 Unknown Rx Ibuprofen [Motrin 800 MG tab] 800 mg PO Q8HR PRN #20 tablet 05/14/20 Unknown Rx traMADoL [Ultram] 50 mg PO Q6HR PRN #10 tablet 05/14/20 Unknown Rx Acetaminophen [Acetaminophen 8 650 mg PO Q8HR #30 tablet.er 07/13/21 Unknown Rx Hour] ED Physical Exam - General Limitations: No Limitations General appearance: alert, in no apparent distress - Head Head exam: Present: atraumatic, normocephalic, normal inspection - Eye Eye exam: Present: normal appearance, PERRL, EOMI Pupils: Present: normal accommodation - ENT ENT exam: Present: normal exam, mucous membranes moist, TM's normal bilaterally - Neck Neck exam: Present: normal inspection, full ROM. Absent: meningismus - Respiratory Respiratory exam: Present: normal lung sounds bilaterally. Absent: respiratory distress, wheezes, rales, rhonchi - Cardiovascular Cardiovascular Exam: Present: regular rate, normal rhythm, normal heart sounds - GI/Abdominal GI/Abdominal exam: Present: soft. Absent: distended, tenderness, guarding, rebound - Back Exam Back exam: Present: normal inspection, full ROM. Absent: CVA tenderness (R), CVA tenderness (L) - Neurological Exam Neurological exam: Present: alert, oriented X3, CN II-XII intact, normal gait - Psychiatric Psychiatric exam: Present: normal affect, anxious - Skin Skin exam: Present: intact ED Course Vital Signs 07/13/21 07/13/21 15:25 17:26 Temperature 98.7 F Pulse Rate 87 Respiratory 18 Rate Blood Pressure 146/85 [Right] O2 Sat by Pulse 99 100 Oximetry ED Medical Decision Making - Lab Data Result diagrams: 07/13/21 16:08 07/13/21 16:08 - Radiology Data Radiology results: report reviewed Patient: WILLY ERAZO MR#: [id number] : 1955 Acct:[id number] Age/Sex: 65 / F ADM Date: 07/13/21 Loc: ED Attending Dr: Ordering Physician: RYAN VALDEZ Date of Service: 07/13/21 Procedure(s): CT abdomen pelvis w con Accession Number(s): [id number] cc: RYAN VALDEZ CT ABDOMEN AND PELVIS WITH CONTRAST INDICATION / CLINICAL INFORMATION: Left flank pain, abdominal distention. TECHNIQUE: Axial CT images were obtained through the abdomen and pelvis after 100 cc Omnipaque [address] scans at this location are performed using CT dose reduction for ALARA by means of automated exposure control. COMPARISON: CT abdomen and pelvis without contrast from 03/11/2020. FINDINGS: LOWER CHEST: No significant abnormality. LIVER: No significant abnormality. GALLBLADDER: Surgically absent. BILE DUCTS: No significant abnormality. PANCREAS: No significant abnormality. SPLEEN: No significant abnormality. ADRENALS: No significant abnormality. KIDNEYS / URETERS: No significant abnormality. STOMACH / SMALL BOWEL: No significant abnormality. COLON: There is generalized uninflamed diverticulosis. No other significant ab normality. APPENDIX: No significant abnormality. PERITONEUM: No free fluid. No free air. No fluid collection. LYMPH NODES: No significant adenopathy. AORTA / ARTERIES: No significant abnormality. IVC / VEINS: No significant abnormality. URINARY BLADDER: No significant abnormality. REPRODUCTIVE ORGANS: Uterus is absent. No significant adnexal abnormality. ADDITIONAL FINDINGS: None. BONES: No significant abnormality. IMPRESSION: No acute abnormality of the abdomen or pelvis. Signer Name: Tacho Morgan MD Signed: 07/13/2021 5:58 PM Workstation Name: [id number] Transcribed By: SHELDON Dictated By: Tacho Morgan MD Electronically Authenticated By: Tacho Morgan MD Signed Date/Time: 07/13/211757 DD/ 51 TD/TT: - Medical Decision Making All labs reviewed -- CBC and CMP unremarkable. UA negative UTI. CT abdomen and pelvis with IV contrast negative for anything acute. Pt resting comfortably, currently on her phone and is not in any acute distress. She is hemodynamically stable. Reviewed all lab and imaging results with patient. All unremarkable including negative CT abd and pelvis. I do not suspect STEMI, unstable angina, PE, or equina epidural abscess or any other emergent conditions warranting any additional testing or admission at this time. Discussed all results with patient. Recommend close follow-up with her PCP next week. She understands to return to the ER if at any point her symptoms changes or worsens. Patient was stable at time of discharge. Critical care attestation.: If time is entered above; I have spent that time in minutes in the direct care of this critically ill patient, excluding procedure time. ED Disposition Clinical Impression: Left flank pain Disposition: HOME / SELF CARE / HOMELESS Is pt being admited?: No Does the pt Need Aspirin: No Condition: Stable Instructions: Flank Pain, Adult, [id number], Abdominal Pain (ED) Additional Instructions: I recommend taking tylenol as prescribed for pain especially if it continues. I do recommend that your follow up with your PCP next week for further evaluation especially if symptoms continues and to see if you need to follow back up with your GI specialist. If at any point your symptoms worsens with development of fever, chest pain or shortness of breath or worsening flank abdominal pain return immediately to the hospital. Prescriptions: Acetaminophen [Acetaminophen 8 Hour] 650 mg PO Q8HR #30 tablet.er Referrals: THEA MONTES MD [Primary Care Provider] - 3-5 Days Time of Disposition: 18:33
[2021-07-13 16:20] LABS: Basophils % (Auto) 0.6 % (0.0-1.8); Eosinophils # (Auto) 0.1 K/mm3 (0.0-0.4); Eosinophils % (Auto) 2.3 % (0.0-4.3); Hematocrit 49.7 % (30.3-42.9); Hemoglobin 16.3 gm/dl (10.1-14.3); Lymphocytes # (Auto) 0.9 K/mm3 (1.2-5.4); Mean Corpuscular HGB Conc 33 % (30-34); Mean Corpuscular Volume 89 fl (79-97); Monocytes # (Auto) 0.6 K/mm3 (0.0-0.8); Monocytes % (Auto) 10.2 % (0.0-7.3); Platelet Count 185 K/mm3 (140-440); Red Blood Count 5.59 M/mm3 (3.65-5.03); Red Cell Distribution Width 13.3 % (13.2-15.2)
[2021-07-13 16:44] LABS: Alanine Aminotransferase 25 units/L (7-56); Albumin 4.1 g/dL (3.9-5); BUN/Creatinine Ratio 13; Blood Urea Nitrogen 10 mg/dL (7-17); Calcium 9.6 mg/dL (8.4-10.2); Hemolysis Index 44
[2021-07-13 16:47] LABS: Bilirubin,Direct < 0.2 mg/dL (0-0.2)
--- NOTE | 2021-07-13 18:02 | Cat Scan Report ---
CT ABDOMEN AND PELVIS WITH CONTRAST INDICATION / CLINICAL INFORMATION: Left flank pain, abdominal distention. TECHNIQUE: Axial CT images were obtained through the abdomen and pelvis after 100 cc Omnipaque [address] scans at this location are performed using CT dose reduction for ALARA by means of automated exposure control. COMPARISON: CT abdomen and pelvis without contrast from 03/11/2020. FINDINGS: LOWER CHEST: No significant abnormality. LIVER: No significant abnormality. GALLBLADDER: Surgically absent. BILE DUCTS: No significant abnormality. PANCREAS: No significant abnormality. SPLEEN: No significant abnormality. ADRENALS: No significant abnormality. KIDNEYS / URETERS: No significant abnormality. STOMACH / SMALL BOWEL: No significant abnormality. COLON: There is generalized uninflamed diverticulosis. No other significant abnormality. APPENDIX: No significant abnormality. PERITONEUM: No free fluid. No free air. No fluid collection. LYMPH NODES: No significant adenopathy. AORTA / ARTERIES: No significant abnormality. IVC / VEINS: No significant abnormality. URINARY BLADDER: No significant abnormality. REPRODUCTIVE ORGANS: Uterus is absent. No significant adnexal abnormality. ADDITIONAL FINDINGS: None. BONES: No significant abnormality. IMPRESSION: No acute abnormality of the abdomen or pelvis. Signer Name: Tacho Morgan MD Signed: 07/13/2021 5:58 PM Workstation Name: [id number]
[2021-07-13 18:28] LABS: Bacteria,Urine 1+ /HPF (Negative); Bilirubin,Urine NEG (Negative); Blood,Urine MOD (Negative); Color,Urine Yellow (Yellow); Urobilinogen,Urine < 2.0 mg/dL (<2.0); WBC,Urine < 1.0 /HPF (0.0-6.0)
[2021-07-13 18:46] VITALS: BP 140/76
== END 2021-07-13 18:52 | disposition home or self-care (01) ==
LOC: ED 15:17
DX: R10.9 Unspecified abdominal pain (principal); I10 Essential (primary) hypertension; E78.00 Pure hypercholesterolemia, unspecified; Z90.49 Acquired absence of other specified parts of digestive tract; Z98.890 Other specified postprocedural states; Z79.84 Long term (current) use of oral hypoglycemic drugs; Z79.899 Other long term (current) drug therapy
CPT/HCPCS: 36415; 74177; 80048; 80076; 81001; 83690; 85025; 96360; 99284; J7030; Q9967; Q0162

== ENCOUNTER 2021-07-17 21:43 | Emergency (ER) | payer BC, OTHER ==
[2021-07-17 21:53] VITALS: BP 154/78
--- NOTE | 2021-07-17 22:48 | XRay Report ---
XR knee 4+V LT INDICATION / CLINICAL INFORMATION: patella pain and bruising after fall COMPARISON: None available. FINDINGS: BONES / JOINT(S): No acute fracture or subluxation. Patellofemoral joint is preserved on sunrise view . No significant arthritis. No significant joint effusion. SOFT TISSUES: No significant abnormality. ADDITIONAL FINDINGS: None. IMPRESSION: No acute osseous findings in the left knee. Signer Name: Jamar Arrington MD Signed: 07/17/2021 10:43 PM Workstation Name: [id number]
--- NOTE | 2021-07-17 22:54 | Emergency Department Report ---
ED General Adult HPI - General Chief complaint: Extremity Injury, Lower Stated complaint: FALL Time Seen by Provider: 07/17/21 21:55 Source: patient Mode of arrival: Ambulatory Limitations: No Limitations - History of Present Illness Initial comments: 65-year-old female patient presents with complaints of left knee pain after fall injury today at work. Patient states she slipped on a wet floor and fell hitting her the front portion of her knee on the ground. She rates her pain as a 7/10 in severity. Patient states pain worsens with ambulation and with movement of the knee. She denies any loss of sensation to the leg - Related Data Home Medications Medication Instructions Recorded Confirmed Last Taken Levothyroxine Sodium 1 tab PO DAILY 09/13/18 09/13/18 Unknown Rosuvastatin Calcium 1 tab PO DAILY 09/13/18 09/13/18 Unknown metFORMIN XR [Glucophage XR] 1 tab PO DAILY 09/13/18 09/13/18 Unknown Previous Rx's Medication Instructions Recorded Last Taken Type lisinopriL [Zestril TAB] 10 mg PO QDAY #30 tablet 12/10/16 04/28/17 Rx Docusate Sodium [Colace] 100 mg PO BID PRN #20 capsule 11/27/18 Unknown Rx Oseltamivir [Tamiflu] 75 mg PO BID 5 Days #10 cap 09/30/19 Unknown Rx Ciprofloxacin HCl [Ciprofloxacin 500 mg PO Q12HR #14 tab 03/11/20 Unknown Rx TAB] Ondansetron [Zofran Odt] 4 mg PO Q8HR PRN #12 tab.rapdis 03/11/20 Unknown Rx metroNIDAZOLE [Flagyl] 500 mg PO Q12HR #14 tab 03/11/20 Unknown Rx Ibuprofen [Motrin 800 MG tab] 800 mg PO Q8HR PRN #20 tablet 05/14/20 Unknown Rx traMADoL [Ultram] 50 mg PO Q6HR PRN #10 tablet 05/14/20 Unknown Rx Acetaminophen [Acetaminophen 8 650 mg PO Q8HR #30 tablet.er 07/13/21 Unknown Rx Hour] Naproxen [Naprosyn] 500 mg PO BID PRN #14 tablet 07/17/21 Unknown Rx Allergies Allergy/AdvReac Type Severity Reaction Status Date / Time No Known Allergies Allergy Verified 11/27/18 11:57 ED Review of Systems ROS: Stated complaint: FALL Other details as noted in HPI Musculoskeletal: arthralgia. denies: joint swelling Skin: denies: change in color Neurological: denies: numbness, paresthesias ED Past Medical Hx - Past Medical History Previous Medical History?: Yes Hx Hypertension: Yes Hx Congestive Heart Failure: No Hx Diabetes: No Hx Asthma: No Hx COPD: No Hx HIV: No Additional medical history: hypothyroid, diverticulitis, high cholesterol - Surgical History Past Surgical History?: Yes Hx Cholecystectomy: Yes Additional Surgical History: , Bladder Lift - Social History Smoking Status: Never Smoker Substance Use Type: None - Medications Home Medications: Home Medications Medication Instructions Recorded Confirmed Last Taken Type lisinopriL [Zestril TAB] 10 mg PO QDAY #30 tablet 12/10/16 09/13/18 04/28/17 Rx Levothyroxine Sodium 1 tab PO DAILY 09/13/18 09/13/18 Unknown History Rosuvastatin Calcium 1 tab PO DAILY 09/13/18 09/13/18 Unknown History metFORMIN XR [Glucophage XR] 1 tab PO DAILY 09/13/18 09/13/18 Unknown History Docusate Sodium [Colace] 100 mg PO BID PRN #20 capsule 11/27/18 Unknown Rx Oseltamivir [Tamiflu] 75 mg PO BID 5 Days #10 cap 09/30/19 Unknown Rx Ciprofloxacin HCl [Ciprofloxacin 500 mg PO Q12HR #14 tab 03/11/20 Unknown Rx TAB] Ondansetron [Zofran Odt] 4 mg PO Q8HR PRN #12 tab.rapdis 03/11/20 Unknown Rx metroNIDAZOLE [Flagyl] 500 mg PO Q12HR #14 tab 03/11/20 Unknown Rx Ibuprofen [Motrin 800 MG tab] 800 mg PO Q8HR PRN #20 tablet 05/14/20 Unknown Rx traMADoL [Ultram] 50 mg PO Q6HR PRN #10 tablet 05/14/20 Unknown Rx Acetaminophen [Acetaminophen 8 650 mg PO Q8HR #30 tablet.er 07/13/21 Unknown Rx Hour] Naproxen [Naprosyn] 500 mg PO BID PRN #14 tablet 07/17/21 Unknown Rx ED Physical Exam - General Limitations: No Limitations General appearance: alert, in no apparent distress - Head Head exam: Present: atraumatic, normocephalic - Respiratory Respiratory exam: Absent: respiratory distress - Cardiovascular Cardiovascular Exam: Present: regular rate - Expanded Lower Extremity Exam Left Knee exam: Present: full ROM, tenderness (Tenderness to palpation noted to left patella with very mild ecchymosis). Absent: swelling, abrasion, laceration, deformity, crepidus, dislocation, erythema, effusion Ankle exam: Present: normal inspection Neuro vascular tendon exam: Present: no vascular compromise Gait: Positive: antalgic - Neurological Exam Neurological exam: Present: alert, oriented X3 - Psychiatric Psychiatric exam: Present: normal affect, normal mood - Skin Skin exam: Present: warm, dry, intact, normal color. Absent: rash ED Course Vital Signs 07/17/21 21:52 Temperature 98.2 F Pulse Rate 66 Respiratory 18 Rate Blood Pressure 154/78 O2 Sat by Pulse 98 Oximetry ED Medical Decision Making - Radiology Data Radiology results: report reviewed XR knee 4+V LT INDICATION / CLINICAL INFORMATION: patella pain and bruising after fall COMPARISON: None available. FINDINGS: BONES / JOINT(S): No acute fracture or subluxation. Patellofemoral joint is preserved on sunrise view. No significant arthritis. No significant joint effusion. SOFT TISSUES: No significant abnormality. ADDITIONAL FINDINGS: None. IMPRESSION: No acute osseous findings in the left knee. - Medical Decision Making 65-year-old female patient presents with complaints of left knee pain after fall injury today at work. Patient states she slipped on a wet floor and fell hitting her the front portion of her knee on the ground. She rates her pain as a 7/10 in severity. Patient states pain worsens with ambulation and with movement of the knee. She denies any loss of sensation to the leg X-rays negative for any acute bony abnormalities. Will treat for knee contusion with Rebel wrap and icing and NSAIDs. Patient follow-up with PCP in 3 to 5 days. She is well-appearing and stable for discharge home. Signs and symptoms that should prompt immediate return to the ED discussed with patient who verbalized understanding Critical care attestation.: If time is entered above; I have spent that time in minutes in the direct care of this critically ill patient, excluding procedure time. ED Disposition Clinical Impression: Left knee injury Disposition: HOME / SELF CARE / HOMELESS Is pt being admited?: No Condition: Stable Instructions: Knee Sprain, Adult, [id number] Prescriptions: Naproxen [Naprosyn] 500 mg PO BID PRN #14 tablet PRN Reason: pain Referrals: PRIMARY CARE, [Primary Care Provider] - 3-5 Days NICK VELAZQUEZ MD [Staff Physician] - as needed Forms: Work/School Release Form(ED)
== END 2021-07-18 00:24 | disposition home or self-care (01) ==
LOC: ED 21:43
DX: S89.82XA Other specified injuries of left lower leg, initial encounter (principal); I10 Essential (primary) hypertension; Z90.49 Acquired absence of other specified parts of digestive tract; W01.0XXA Fall on same level from slipping, tripping and stumbling without subsequent striking against object, initial encounter; Y93.89 Activity, other specified; Y92.89 Other specified places as the place of occurrence of the external cause; Y99.8 Other external cause status
CPT/HCPCS: 99283

== ENCOUNTER 2021-07-26 12:40 | Outpatient (CLI) | payer BC ==
--- NOTE | 2021-07-26 14:02 | XRay Report ---
Right shoulder 3 views INDICATION: Shoulder pain FINDINGS: Mild AC degenerative change. No acute fracture dislocation. Signer Name: Gold Hernandez MD Signed: 07/26/2021 1:58 PM Workstation Name: [id number]
== END 2021-07-26 12:41 | disposition home or self-care (01) ==
LOC: XRAY 12:40
PROVIDERS: ATTEND Orthopaedic Surgery
DX: M19.011 Primary osteoarthritis, right shoulder (principal)

== ENCOUNTER 2021-08-06 07:49 | Emergency (ER) | payer BC ==
[2021-08-06 08:34] VITALS: BP 145/68
--- NOTE | 2021-08-06 08:38 | Emergency Department Report ---
Upper Extremity - HPI Chief Complaint: Extremity Injury, Upper Stated Complaint: R SHOULDER PAIN Time Seen by Provider: 08/06/21 08:32 Upper Extremity: Right Shoulder Occurred When: >5 Days Symptoms: No Pain with Movement, No Deformity, No Limited Range of Movement, No Numbness, No Weakness, No Swelling, No Bruising/Ecchymosis, No Laceration or Abrasion Other History: 65-year-old female presents to the emergency room complaining of right shoulder pain that is gotten worse. Patient states that she was originally seen here July 26 had x-rays and was referred to Dr. Velazquez. She states that she went to see Dr. Velazquez last Thursday was given Tylenol 3 and a steroid injection. Patient states that she called back yesterday reporting to him that the pain is gotten worse and he placed the MRI for her to have done. Patient comes into the emergency room seeking pain medicine. ED Review of Systems ROS: Stated complaint: R SHOULDER PAIN Other details as noted in HPI Comment: All other systems reviewed and negative ED Past Medical Hx - Past Medical History Hx Hypertension: Yes Hx Congestive Heart Failure: No Hx Diabetes: No Hx Asthma: No Hx COPD: No Hx HIV: No Additional medical history: hypothyroid, diverticulitis, high cholesterol - Surgical History Hx Cholecystectomy: Yes Additional Surgical History: , Bladder Lift - Social History Smoking Status: Never Smoker Substance Use Type: None - Medications Home Medications: Home Medications Medication Instructions Recorded Confirmed Last Taken Type lisinopriL [Zestril TAB] 10 mg PO QDAY #30 tablet 12/10/16 09/13/18 04/28/17 Rx Levothyroxine Sodium 1 tab PO DAILY 09/13/18 09/13/18 Unknown History Rosuvastatin Calcium 1 tab PO DAILY 09/13/18 09/13/18 Unknown History metFORMIN XR [Glucophage XR] 1 tab PO DAILY 09/13/18 09/13/18 Unknown History Docusate Sodium [Colace] 100 mg PO BID PRN #20 capsule 11/27/18 Unknown Rx Oseltamivir [Tamiflu] 75 mg PO BID 5 Days #10 cap 09/30/19 Unknown Rx Ciprofloxacin HCl [Ciprofloxacin 500 mg PO Q12HR #14 tab 03/11/20 Unknown Rx TAB] Ondansetron [Zofran Odt] 4 mg PO Q8HR PRN #12 tab.rapdis 03/11/20 Unknown Rx metroNIDAZOLE [Flagyl] 500 mg PO Q12HR #14 tab 03/11/20 Unknown Rx Ibuprofen [Motrin 800 MG tab] 800 mg PO Q8HR PRN #20 tablet 05/14/20 Unknown Rx traMADoL [Ultram] 50 mg PO Q6HR PRN #10 tablet 05/14/20 Unknown Rx Acetaminophen [Acetaminophen 8 650 mg PO Q8HR #30 tablet.er 07/13/21 Unknown Rx Hour] Naproxen [Naprosyn] 500 mg PO BID PRN #14 tablet 07/17/21 Unknown Rx Upper Extremity Exam - Exam General: Vital signs noted. No distress. Alert and acting appropriately. Head and Torso: No HEENT Abnormality, No Neck Tenderness, No Chest/Lungs Abnormality, No Abdominal Tenderness, No Back Tenderness Shoulder Exam: Yes Normal Range of Motion in Shoulder, No Shoulder Tenderness, No Clavicle Tenderness, No Shoulder Deformity, No AC Joint Tenderness Arm Exam: No Arm/Humerus Tenderness, No Arm Deformity Elbow: No Elbow Tenderness, No Normal Range of Motion in Elbow, No Elbow Deformity Forearm: No Forearm Tenderness, No Forearm Deformity, No Pain with Pronation, No Pain with Supination Wrist: Yes Normal ROM in Wrist, No Wrist Tenderness, No Wrist Deformity, No Snuffbox Tenderness, No Pain with Axial Thumb Compression Hand: Yes Normal ROM in Digit(s), No Hand Tenderness, No Hand Deformity, No Digit Tenderness, No Digit(s) Deformity, No Tendon Dysfunction ED Medical Decision Making - Medical Decision Making 65-year-old female presents to the emergency room complaining of right shoulder pain that is gotten worse. Patient states that she was originally seen here July 26 had x-rays and was referred to Dr. Velazquez. She states that she went to see Dr. Velazquez last Thursday was given Tylenol 3 and a steroid injec tion. Patient states that she called back yesterday reporting to him that the pain is gotten worse and he placed the MRI for her to have done. Patient comes into the emergency room seeking pain medicine. Discussed with patient she can take 2 Tylenol 3's every 6-8 hours for pain. I recommended her to give Dr. Velazquez's office a call back to see if she is able to go over and get her MRI done today. Discussed with patient to continue with ice to her shoulder. Her to increase her water intake. Patient states that she cannot have NSAIDs which would have been a recommendation. Critical care attestation.: If time is entered above; I have spent that time in minutes in the direct care of this critically ill patient, excluding procedure time. ED Disposition Clinical Impression: Right shoulder pain Disposition: 01 HOME / SELF CARE / HOMELESS Is pt being admited?: No Does the pt Need Aspirin: No Condition: Stable Instructions: Shoulder Pain, [id number] Additional Instructions: Please call MRI to see if they are able to see you today. I highly recommended she call Dr. Velazquez's office today and see if there is any other recommendations. You can take 2 Tylenol 3 every 6-8 hours. You can try [id number] Voltaren gel. Referrals: TARYN ORONA MD [Primary Care Provider] - 3-5 Days NICK VELAZQUEZ MD [Staff Physician] - 3-5 Days Forms: Work/School Release Form(ED) Time of Disposition: 08:37
== END 2021-08-06 08:59 | disposition home or self-care (01) ==
LOC: ED 07:49
DX: M25.511 Pain in right shoulder (principal); I10 Essential (primary) hypertension; Z98.890 Other specified postprocedural states; Z79.899 Other long term (current) drug therapy
CPT/HCPCS: 99282

== ENCOUNTER 2021-08-07 07:46 | Outpatient (CLI) | payer BC ==
--- NOTE | 2021-08-07 09:54 | Magnetic Resonance Report ---
MRI RIGHT SHOULDER WITHOUT CONTRAST INDICATION / CLINICAL INFORMATION: M25.511 PAIN IN RIGHT SHOULDER. TECHNIQUE: Multiplanar, multisequence MR images were obtained. No contrast used. COMPARISON: Radiographs dated 07/26/21 FINDINGS: SUPRASPINATUS: Full-thickness tear of the anterior fibers of the distal supraspinatus tendon with min imal retraction. Mild muscle atrophy. INFRASPINATUS: Tendinosis but no tear. SUBSCAPULARIS: Tendinosis. BICEPS TENDON, LONG HEAD: Tear of the intra-articular biceps tendon with distal retraction into the u pper arm. GLENOID LABRUM: Degenerative fraying of the superior labrum. ARTICULAR CARTILAGE: No significant abnormality. JOINT SPACE / CAPSULE: No significant abnormality. ACROMION / A.C. JOINT: Moderate hypertrophic AC joint degenerative arthrosis with lateral downsloping of the acromion both of which contribute to encroachment on the rotator cuff. SUBACROMIAL/SUBDELTOID SPACE: Small amount of fluid in the subacromial bursa. BONES: No significant bone marrow edema. No fracture. No osseous lesion. SOFT TISSUES: No significant abnormality. ADDITIONAL FINDINGS: None. IMPRESSION: 1. Full-thickness tear of the anterior distal supraspinatus tendon. 2. Tear of the intra-articular biceps tendon with distal retraction. 3. Moderate AC joint degenerative arthrosis with lateral downsloping of the acromion reducing encroac hment on the rotator cuff. Signer Name: Molly Martinez MD Signed: 08/07/2021 9:49 AM Workstation Name: [id number]
== END 2021-08-07 07:47 | disposition home or self-care (01) ==
LOC: MRI 07:46
PROVIDERS: ATTEND Orthopaedic Surgery
DX: S46.911A Strain of unspecified muscle, fascia and tendon at shoulder and upper arm level, right arm, initial encounter (principal); X58.XXXA Exposure to other specified factors, initial encounter; Y93.89 Activity, other specified; Y92.89 Other specified places as the place of occurrence of the external cause; Y99.8 Other external cause status

== ENCOUNTER 2021-09-05 07:00 | Day surgery (SDC) | payer BC ==
[~2021-09-05 07:00] MED LIST: ceFAZolin/STERILE WATER 2 GM/20 ML SYRINGE IV NR
[2021-09-05] MEDS ORDERED: LACTATED RINGERS 1,000 ML ONE (08:50)
[2021-09-05] MEDS ORDERED: LACTATED RINGERS 1,000 ML IV SCH (09:05)
[2021-09-05] MEDS ORDERED: fentaNYL 100 MCG/2 ML INJ ONE ×2 (11:04→12:39)
[2021-09-05] MEDS ORDERED: MIDAZOLAM 2 MG/2 ML INJ ONE (11:04)
[2021-09-05] MEDS ORDERED: LIDOCAINE MPF (2%) 20 MG/1 ML VIAL 5 ML ONE (12:39)
[2021-09-05] MEDS ORDERED: ONDANSETRON 4 MG/2 ML INJ ONE (12:39)
[2021-09-05] MEDS ORDERED: propofoL 200 MG/20 ML VIAL IV ONE (12:39)
[2021-09-05] MEDS ORDERED: methylPREDNISolone ACETATE 40 MG/1 ML INJ ONE (12:39)
[2021-09-05] MEDS ORDERED: dexAMETHasone 20 MG/5 ML VIAL ONE (12:39)
[2021-09-05] MEDS ORDERED: BUPIVACAINE/PF (0.25%) 2.5 MG/ML 30 ML VIAL INFILTRATI ONE (12:39)
[2021-09-05] MEDS ORDERED: EPINEPHrine/PF 1 MG/1 ML INJ ONE ×2 (12:40→13:31)
[2021-09-05] MEDS ORDERED: EPINEPHrine/PF 1 MG/1 ML INJ IV ONE (14:09)
[2021-09-05] MEDS ORDERED: ePHEDrine SULFATE 50 MG/1 ML INJ ONE (14:23)
[2021-09-05] MEDS ORDERED: SODIUM CHLORIDE 0.9% IRR 1,500 ML BOTTLE IR ONE (14:24)
[2021-09-05] MEDS ORDERED: SODIUM CHLORIDE 0.9% IRRIG SOLN 2000 ML IR ONE ×3 (14:24)
[2021-09-05] MEDS ORDERED: HYDROmorphone 1 MG/1 ML INJ ONE (14:45)
[2021-09-05] MEDS ORDERED: GLYCOPYRROLATE 0.4 MG/2 ML INJ ONE (15:46)
[2021-09-05] MEDS ORDERED: NEOSTIGMINE 10MG/10 ML INJ MDV ONE (15:46)
--- NOTE | 2021-09-05 16:02 | Procedure Note ---
Date of procedure: 09/05/21 Pre-op diagnosis: Full-thickness rotator cuff tear right shoulder Post-op diagnosis: same Procedure: Arthroscopy right shoulder with subacromial decompression and rotator cuff tendon using suture anchors Procedure The patient was brought to the OR after being given a scalene nerve block for postop pain management . She was placed in the OR table in supine position following induction and intubation by anesthesia patient was placed in the [left] lateral decubitus position the right upper extremity was prepped and draped in the usual sterile manner. A timeout procedure was done to identify the patient and the correct operative site. Routine arthroscopic portals were made following introduction of the arthroscope and instruments and insufflation of the subacromial space with normal saline solution patient was noted to have a full-thickness rotator cuff tear which involved mainly the supraspinatus anteriorly she was also noted to have abundant synovial bursal thickening as well as significant impingement from the acromion and acromioclavicular joints. Using a tissue ablator the soft tissue was removed from both the bursal tissues as well as the periosteal tissues overlying the distal acromion and acromioclavicular joints A large bur was used to debride the bony impingement again this was done under arthroscopic visualization. The anatomic footprint was then seen and debrided using the tissue ablator. The rotator cuff tendon was grasped using a tissue grasper and appeared to move well in the direction of anatomic repair at the footprint. Next a suture anchor suture was placed into the supraspinatus tendon anteriorly, the suture anchor was secured into the greater tuberosity followed by tightening of the sutures and pulling the rotator cuff tendon firmly onto the anatomic footprint arthroscopic photographs were obtained showing good placement of the rotator cuff repair following this the wound was copiously irrigated via stab wounds were repaired with 2 postop dressings were applied the patient was extubated and was taken to postanesthesia recovery in stable condition. Anesthesia: MAC, regional Surgeon: NICK VELAZQUEZ (Andrade Cool, 1st assist) Estimated blood loss: minimal Pathology: none Condition: stable Disposition: PACU
--- NOTE | 2021-09-05 17:23 | Anesthesia Day of Surgery ---
Anesthesia Day of Surgery - Day of Surgery Patient Examined: Yes Patient H&P Reviewed: Yes Patient is NPO: Yes (Time: 09:05)
--- NOTE | 2021-09-05 17:25 | Post Anesthesia Evaluation ---
- Post Anesthesia Evaluation Patient Participated: Yes Airway Patent: Yes Stable Respiratory Function: Yes Nausea/Vomiting: No Temp > 96.8F: Yes Pain Manageable: Yes Adequeate Hydration: Yes Anesthesia Complications: No Block Receding Appropriately: Yes Patient on Ventilator: No
--- NOTE | 2021-09-05 17:25 | Anesthesia Consultation ---
Anesthesia Consult and Med Hx Date of service: 09/05/21 - Airway Anesthetic Teeth Evaluation: Good (Implant) ROM Head & Neck: Adequate Mental/Hyoid Distance: Adequate Mallampati Class: Class II Intubation Access Assessment: Probably Good - Pre-Operative Health Status ASA Pre-Surgery Classification: ASA2 Proposed Anesthetic Plan: General Nerve Block: IS - Pulmonary Hx Smoking: No Hx Asthma: No COPD: No Hx Pneumonia: No Hx Sleep Apnea: No (TWYLA PRE SCREEN LOW RISK) - Cardiovascular System Hx Hypertension: Yes (X 30 YRS) - Central Nervous System Hx Psychiatric Problems: No - Gastrointestinal Hx Gastroesophageal Reflux Disease: Yes - Endocrine Hx End Stage Renal Disease: No Hx Thyroid Disease: Yes Hx Hypothyroidism: Yes - Hematic Hx Anemia: No - Other Systems Hx Cancer: No - Additional Comments Anesthesia Medical History Comments: Time: 09:05
[2021-09-05] MEDS ORDERED: KETOROLAC 30 MG/1 ML INJ ONE (17:30)
[2021-09-05] MEDS ORDERED: ACETAMINOPHEN 325 MG TAB ONE (17:30)
[2021-09-05] MEDS ORDERED: ACETAMINOPHEN 325 MG TAB PO ONE (17:34)
[2021-09-05] MEDS ORDERED: KETOROLAC 30 MG/1 ML INJ IV ONE (17:34)
[2021-09-05 17:54] VITALS: BP 120/75
== END 2021-09-05 07:01 | disposition home or self-care (01) ==
LOC: OR 07:00
PROVIDERS: ATTEND Orthopaedic Surgery
DX: M75.101 Unspecified rotator cuff tear or rupture of right shoulder, not specified as traumatic (principal); Z20.822 Contact with and (suspected) exposure to COVID-19; I10 Essential (primary) hypertension; K21.9 Gastro-esophageal reflux disease without esophagitis; E03.9 Hypothyroidism, unspecified; Z79.899 Other long term (current) drug therapy; Z98.890 Other specified postprocedural states
CPT/HCPCS: 29822; 29827; 64415; C1713; J0171; J0690; J1100; J1170; J1815; J1885; J2250; J2405; J2704; J2710; J3010; J3490; J7120; U0003; V2790; 64450; J1030

== ENCOUNTER 2021-11-26 09:47 | Outpatient (CLI) | payer BC ==
[2021-11-26 15:07] LABS: Chol/HDL Ratio 2.56 %
== END 2021-11-26 09:48 | disposition home or self-care (01) ==
LOC: LAB 09:47
PROVIDERS: ATTEND Internal Medicine
DX: E03.9 Hypothyroidism, unspecified (principal); E11.9 Type 2 diabetes mellitus without complications
CPT/HCPCS: 36415; 80061; 83036; 84443

== ENCOUNTER 2022-01-10 11:03 | Outpatient (CLI) | payer BC ==
--- NOTE | 2022-01-10 12:49 | XRay Report ---
CERVICAL SPINE 5 VIEWS INDICATION: M25.511 PAIN IN RIGHT SHOULDER /M54.2 CERVICALGIA. COMPARISON: None. IMPRESSION: Normal alignment. 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 The remaining lev els are within normal limits. No significant facet arthropathy is detected. The neural foramen are po tamy visualized on the oblique images. No acute osseous or soft tissue abnormality. Signer Name: Amrik Juarez Jr, MD Signed: 01/10/2022 12:45 PM Workstation Name: [id number]
== END 2022-01-10 11:04 | disposition home or self-care (01) ==
LOC: XRAY 11:03
PROVIDERS: ATTEND Orthopaedic Surgery
DX: M47.812 Spondylosis without myelopathy or radiculopathy, cervical region (principal)
CPT/HCPCS: 72050

== ENCOUNTER 2022-01-23 12:55 | Outpatient (CLI) | payer BC ==
--- NOTE | 2022-01-24 10:44 | Mammography Report ---
DIGITAL SCREENING MAMMOGRAM WITH CAD, 01/23/2022 CLINICAL INFORMATION / INDICATION: Routine screening mammography. Z12.31 TECHNIQUE: Digital bilateral 2D mammography was obtained in the craniocaudal and mediolateral obliqu e projections. This examination was interpreted with the benefit of Computer-Aided Detection analysis . COMPARISON: 05/10/2019 and 05/17/2020. FINDINGS: Breast Density: There are scattered areas of fibroglandular density. No dominant mass, suspicious calcifications, or architectural distortion in either breast. IMPRESSION: No mammographic evidence of malignancy. Follow up recommendation: Routine yearly screening mammogram. BI-RADS Category 1: NEGATIVE A "normal" or negative report should not discourage follow up or biopsy of a clinically significant f inding. A written summary of these findings will be mailed to the patient. The patient will be entered into a mammography reporting system which will generate a reminder letter for the patient's next appointmen t at the appropriate interval. The [employer] recommends yearly mammograms starting at age 40 and continuing as l diane as a woman is in good health. Breast MRI is recommended for women with an approximate 20-25% or greater lifetime risk of breast cancer, including women with a strong family history of breast or ova jose g cancer or who have been treated for Hodgkin's disease. Signer Name: Amaury Rosario MD Signed: 01/24/2022 10:40 AM Workstation Name: [id number]
== END 2022-01-23 12:56 | disposition home or self-care (01) ==
LOC: MAMMO 12:55
PROVIDERS: ATTEND Internal Medicine
DX: Z12.31 Encounter for screening mammogram for malignant neoplasm of breast (principal)
CPT/HCPCS: 77067

== ENCOUNTER 2022-05-01 11:14 | Outpatient (CLI) | payer BC ==
[2022-05-01 11:50] LABS: Basophils % (Auto) 0.7 % (0.0-1.8); Eosinophils # (Auto) 0.1 K/mm3 (0.0-0.4); Eosinophils % (Auto) 1.3 % (0.0-4.3); Hematocrit 46.2 % (30.3-42.9); Hemoglobin 15.6 gm/dl (10.1-14.3); Lymphocytes # (Auto) 2.5 K/mm3 (1.2-5.4); Lymphocytes % (Auto) 36.2 % (13.4-35.0); Mean Corpuscular HGB Conc 34 % (30-34); Mean Corpuscular Volume 89 fl (79-97); Monocytes # (Auto) 0.5 K/mm3 (0.0-0.8); Monocytes % (Auto) 7.7 % (0.0-7.3); Platelet Count 186 K/mm3 (140-440); Red Blood Count 5.19 M/mm3 (3.65-5.03); Red Cell Distribution Width 13.7 % (13.2-15.2)
[2022-05-01 12:04] LABS: Creatinine,Urine 90.9 mg/dL (0.1-20.0); Microalbumin/Creatinine Ratio 378.4 ug/mg
[2022-05-01 12:11] LABS: Alanine Aminotransferase 20 units/L (7-56); Albumin 4.4 g/dL (3.9-5); BUN/Creatinine Ratio 26; Blood Urea Nitrogen 21 mg/dL (7-17); Calcium 9.7 mg/dL (8.4-10.2); Chol/HDL Ratio 2.35 %; HDL Cholesterol 71 mg/dL (40-59); Hemolysis Index 19; LDL Cholesterol,Direct 81 mg/dL (50-130)
[2022-05-01 12:43] LABS: Color,Urine Yellow (Yellow)
[2022-05-01 13:09] LABS: WBC,Urine < 1.0 /HPF (0.0-6.0)
== END 2022-05-01 11:15 | disposition home or self-care (01) ==
LOC: LAB 11:14
PROVIDERS: ATTEND Internal Medicine
DX: Z00.00 Encounter for general adult medical examination without abnormal findings (principal); E11.9 Type 2 diabetes mellitus without complications; I10 Essential (primary) hypertension; E55.9 Vitamin D deficiency, unspecified; E78.5 Hyperlipidemia, unspecified; E03.9 Hypothyroidism, unspecified; R31.9 Hematuria, unspecified
CPT/HCPCS: 36415; 80053; 80061; 81001; 82043; 82306; 83036; 84443; 85025